=== PATIENT | female | born 1955 | race Caucasian/White ===

== ENCOUNTER → 2018-01-03 | Outpatient (CLI) | payer BC ==
--- NOTE | 2018-01-04 16:32 | BD ---
EXAMINATION TYPE: MG DEXA axial skeleton. DATE OF EXAM: 01/03/2018 COMPARISON: NONE CLINICAL HISTORY: Height: 63 Weight: 181.3 FRAX RISK QUESTIONS: Alcohol (3 or more units per day): no Family History (Parent hip fracture): no Glucocorticoids (More than 3mos): no (Ex: prednisone, prednisolone, methylprednisolone, dexamethasone, and hydrocortisone). History of Fracture in Adulthood: no Secondary Osteoporosis: 1. Type 1 Diabetes: no 2. Hyperthyroidism: no 3. Menopause before 45: no 4. Malnutrition: no 5. Chronic liver disease: no Rheumatoid Arthritis: no Current Tobacco Use: no RISK FACTORS HISTORY OF: Surgery to Spine/Hip(right/left)/Wrist (right/left): no Family History of Osteoporosis: no Active: yes Diet low in dairy products/other sources of calcium: yes Postmenopausal woman: around 52 years old Lost more than 2 inches in height since high school: no Frequent falls: no Poor Health: no Hyperparathyroidism: no Adrenal Insufficiency: no MEDICATIONS: atenolol Additional History: EXAM MEASUREMENTS: Bone mineral densitometry was performed using the [employer] System. Bone mineral density as measured about the Lumbar spine is: ----- L1-L4(G/cm2): 1.041 T Score Values are as follows: ----- L2: -1.3 ----- L3: -0.2 ----- L4: -1.4 ----- L1-L4: -1.2 Bone mineral density has:: baseline Bone mineral density about the R hip (g/cm2): 0.853 Bone mineral density about the L hip (g/cm2): 0.830 T Score values are as follows: -----R Neck: -1.3 -----L Neck: -1.5 -----R Total: -0.6 -----L Total: -0.7 Bone mineral density has: baseline Bone mineral density about the L Wrist (g/cm2): 0.606 T Score values are as follows: -----Dist. R+U: -0.3 -----Prox. R+U: -1.3 -----Radius total: -1.1 Bone mineral density has: baseline IMPRESSION: Osteopenia (T Score between -2.5 and -1 as noted by T score values There is slightly increased risk of fracture and the patient may be considered for treatment. Re-Screen 2-5 years. NOTE: T-SCORE=SD OF THE YOUNG ADULT MEAN.
--- NOTE | 2018-01-08 07:58 | BD ---
EXAMINATION TYPE: MG DEXA appendicular skeleton. DATE OF EXAM: 01/03/2018 COMPARISON: NONE CLINICAL HISTORY: Height: 63 Weight: 181.3 FRAX RISK QUESTIONS: Alcohol (3 or more units per day): No Family History (Parent hip fracture): No Glucocorticoids (More than 3mos): No (Ex: prednisone, prednisolone, methylprednisolone, dexamethasone, and hydrocortisone). History of Fracture in Adulthood: No Secondary Osteoporosis: 1. Type 1 Diabetes: No 2. Hyperthyroidism: No 3. Menopause before 45: No 4. Malnutrition: No 5. Chronic liver disease: No Rheumatoid Arthritis: No Current Tobacco Use: No RISK FACTORS HISTORY OF: Surgery to Spine/Hip(right/left)/Wrist (right/left): No Family History (Parent Hip Fracture): No Active: Yes Diet low in dairy products/other sources of calcium: Yes Postmenopausal woman: Around 52 years old Frequent falls: No Poor Health: No Hyperparathyroidism: No Adrenal Insufficiency: No MEDICATIONS: Atenolol Additional History: EXAM MEASUREMENTS: Bone mineral densitometry was performed using the [email or web address] System. Bone mineral density as measured about the Lumbar spine is: ----- L1-L4(G/cm2): 1.041 T Score Values are as follows: ----- L2: -1.3 ----- L3: -0.2 ----- L4: -1.4 ----- L1-L4: -1.2 Bone mineral density has: Baseline Bone mineral density about the R hip (g/cm2): 0.853 Bone mineral density about the L hip (g/cm2): 0.830 T Score values are as follows: -----R Neck: -1.3 -----L Neck: -1.5 -----R Total: -0.6 -----L Total: -0.7 Bone mineral density has: Baseline Bone mineral density about the L Wrist (g/cm2): 0.606 T Score values are as follows: -----Dist. R+U: -0.3 -----Prox. R+U: -1.3 -----Radius total: -0.6 Bone mineral density has: Baseline IMPRESSION: Osteopenia (T Score between -2.5 and -1 as noted by T score values at level of left wrist correlates with findings found in both hips and low back. There is slightly increased risk of fracture and the p atient may be considered for treatment. Re-Screen 2-5 years. NOTE: T-SCORE=SD OF THE YOUNG ADULT MEAN.
== END | disposition home or self-care (01) ==
LOC: RADBDWWP 15:53
PROVIDERS: ATTEND Internal Medicine
DX: M85.80 Other specified disorders of bone density and structure, unspecified site (principal); E83.52 Hypercalcemia
CPT/HCPCS: 77080; 77081

== ENCOUNTER → 2018-01-12 | Outpatient (CLI) | payer BC ==
[2018-01-12 10:22] LABS: Ionized Calcium 5.6 mg/dL (4.5-5.3)
[2018-01-12 10:25] LABS: ALT 32 U/L (9-52); AST 21 U/L (14-36); Albumin 4.2 g/dL (3.5-5.0); Alkaline Phosphatase 91 U/L (38-126); Blood Urea Nitrogen 13 mg/dL (7-17); Calcium 10.6 mg/dL (8.4-10.2); Carbon Dioxide 27 mmol/L (22-30); Chloride 103 mmol/L (98-107); Glucose 96 mg/dL (74-99); Phosphorus 3.1 mg/dL (2.5-4.5); Potassium 4.9 mmol/L (3.5-5.1); Total Bilirubin 0.3 mg/dL (0.2-1.3); Total Protein 6.9 g/dL (6.3-8.2)
[2018-01-12 10:31] LABS: Anion Gap 11 mmol/L; Sodium 141 mmol/L (137-145)
[2018-01-12 13:43] LABS: Calcium 24 Hour,Urine 182.6 mg/24 hr
[2018-01-12 13:44] LABS: Creatinine 24 Hour,Urine 1126.4 mg/24hr (800.0-1800.0)
== END | disposition home or self-care (01) ==
LOC: LABWHC1 09:20
PROVIDERS: ATTEND Internal Medicine
DX: E83.52 Hypercalcemia (principal)
CPT/HCPCS: 36415; 80053; 81050; 82306; 82330; 82340; 82570; 83970; 84100

== ENCOUNTER → 2018-05-16 | Outpatient (CLI) | payer BC ==
[2018-05-16 11:53] LABS: Ionized Calcium 5.5 mg/dL (4.5-5.3)
[2018-05-16 12:47] LABS: ALT 39 U/L (9-52); AST 28 U/L (14-36); Albumin 4.5 g/dL (3.5-5.0); Alkaline Phosphatase 98 U/L (38-126); Anion Gap 12 mmol/L; Blood Urea Nitrogen 17 mg/dL (7-17); Calcium 10.4 mg/dL (8.4-10.2); Carbon Dioxide 25 mmol/L (22-30); Chloride 102 mmol/L (98-107); Glucose 93 mg/dL (74-99); Potassium 4.6 mmol/L (3.5-5.1); Sodium 139 mmol/L (137-145); Total Bilirubin 0.4 mg/dL (0.2-1.3); Total Protein 6.9 g/dL (6.3-8.2)
[2018-05-16 16:17] LABS: Vitamin D 25 Hydroxy 38.1 ng/mL (30.0-100.0)
[2018-05-16 17:25] LABS: Parathyroid Hormone Intact 100.8 pg/mL (14.0-72.0)
== END | disposition home or self-care (01) ==
LOC: LABWHC1 11:07
PROVIDERS: ATTEND Internal Medicine
DX: E83.52 Hypercalcemia (principal)
CPT/HCPCS: 36415; 80053; 82306; 82330; 83970

== ENCOUNTER → 2018-11-22 | Outpatient (CLI) | payer BC ==
[2018-11-22 12:05] LABS: Ionized Calcium 5.5 mg/dL (4.5-5.3)
[2018-11-22 12:06] LABS: Basophils # (A) 0.1 k/uL (0-0.2); Basophils % (A) 1 %; Eosinophils # (A) 0.2 k/uL (0-0.7); Eosinophils % (A) 3 %; HCT 42.9 % (34.0-46.0); HGB 13.6 gm/dL (11.4-16.0); Lymphocytes # (A) 2.2 k/uL (1.0-4.8); Lymphocytes % (A) 32 %; MCH 29.7 pg (25.0-35.0); MCHC 31.7 g/dL (31.0-37.0); Mean Platelet Volume 8.3; Monocytes # (A) 0.4 k/uL (0-1.0); Monocytes % (A) 5 %; Neutrophils # (A) 3.9 k/uL (1.3-7.7); Neutrophils % (A) 57 %; Platelet Count 253 k/uL (150-450); RBC 4.56 m/uL (3.80-5.40); RDW 14.1 % (11.5-15.5); WBC 6.8 k/uL (3.8-10.6)
[2018-11-22 15:33] LABS: Parathyroid Hormone Intact 173.1 pg/mL (14.0-72.0)
[2018-11-22 15:35] LABS: Albumin 4.5 g/dL (3.80-4.90); Albumin/Globulin Ratio 2.65 (1.20-2.10); Anion Gap 8.5 mmol/L (4.00-12.00); Calcium 9.7 mg/dL (8.7-10.3); Carbon Dioxide 26.5 mmol/L (21.6-31.8); Globulin 1.7 g/dL (1.6-3.3); LDL Cholesterol,Calculated 100.4 mg/dL (0.0-131.0); Phosphorus 2.9 mg/dL (2.4-5.1); Potassium 4.7 mmol/L (3.5-5.5); Total Bilirubin 0.4 mg/dL (0.3-1.2); Total Protein 6.2 g/dL (6.2-8.2); VLDL Calculation 28.6 mg/dL (5.00-40.00)
== END | disposition home or self-care (01) ==
LOC: LABWHC1 10:52
PROVIDERS: ATTEND Internal Medicine
DX: E21.3 Hyperparathyroidism, unspecified (principal); E55.9 Vitamin D deficiency, unspecified; E04.1 Nontoxic single thyroid nodule; Z13.1 Encounter for screening for diabetes mellitus; Z13.0 Encounter for screening for diseases of the blood and blood-forming organs and certain disorders involving the immune mechanism; Z13.220 Encounter for screening for lipoid disorders
CPT/HCPCS: 36415; 80053; 80061; 82306; 82330; 83970; 84100; 84443; 85025

== ENCOUNTER → 2018-12-09 | Outpatient (CLI) | payer BC ==
--- NOTE | 2018-12-14 09:23 | MM ---
Reason for exam: screening (asymptomatic). Last mammogram was performed 2 years and 2 months ago. History: Patient is postmenopausal. Benign excisional biopsy of the right breast, 2001. Benign excisional biopsy of the right breast, 1994. MG Screening Mammo w CAD Bilateral CC and MLO view(s) were taken. Prior study comparison: September 28, 2016, bilateral MG screening mammo w CAD. August 12, 2015, bilateral MG screening mammo w CAD. There are scattered fibroglandular densities. No suspicious abnormality. No significant changes when compared with prior studies. ASSESSMENT: Negative, BI-RAD 1 RECOMMENDATION: Routine screening mammogram of both breasts in 1 year.
== END | disposition home or self-care (01) ==
LOC: RADMAMWWP 14:38
PROVIDERS: ATTEND Family Medicine
DX: Z12.31 Encounter for screening mammogram for malignant neoplasm of breast (principal)
CPT/HCPCS: 77067

== ENCOUNTER → 2020-01-05 | Outpatient (CLI) | payer MEDICARE ==
--- NOTE | 2020-01-06 10:35 | MM ---
Reason for exam: screening (asymptomatic). Last mammogram was performed 1 year and 1 month ago. History: Patient is postmenopausal. Benign excisional biopsy of the right breast, 2001. Benign excisional biopsy of the right breast, 1994. Physical Findings: A clinical breast exam by your physician is recommended on an annual basis and results should be correlated with mammographic findings. MG 3D Screening Mammo W/Cad Bilateral CC and MLO view(s) were taken. Prior study comparison: December 09, 2018, bilateral MG screening mammo w CAD. September 28, 2016, bilateral MG screening mammo w CAD. There are scattered fibroglandular densities. There is chronic nodularity in the right breast. There is no dominant lesion. No significant changes when compared with prior studies. ASSESSMENT: Benign, BI-RAD 2 RECOMMENDATION: Routine screening mammogram of both breasts in 1 year.
== END | disposition home or self-care (01) ==
LOC: RADMAMWWP 16:06
PROVIDERS: ATTEND Family Medicine
DX: Z12.31 Encounter for screening mammogram for malignant neoplasm of breast (principal)
CPT/HCPCS: 77063; 77067

== ENCOUNTER 2020-10-12 16:11 | Emergency (ER) | payer MEDICARE ==
[2020-10-12] MEDS ORDERED: HYDROmorphone 0.5 MG/0.5 ML SYRINGE IVP STA (16:44)
[2020-10-12] MEDS ORDERED: SODIUM CHLORIDE 0.9% 1,000 ML IV STA (16:44)
--- NOTE | 2020-10-12 17:16 | ED ---
General Adult HPI - General Chief complaint: Abdominal Pain Stated complaint: abdominal pain Time Seen by Provider: 10/12/20 16:29 Source: patient, RN notes reviewed Mode of arrival: ambulatory Limitations: no limitations - History of Present Illness Initial comments: patient is a pleasant 65-year-old female presenting to the emergency Department with complaints of abdominal discomfort. Onset of symptoms was over a week ago. Discomfort has worsened the past couple of days. Patient does feel somewhat constipated. Patient did have some nausea vomiting however that has resolved. Patient also had some diarrhea that is also resolved. Patient did see her doctor close to week ago and was started on antibiotics however symptoms have worsened. No fever. Patient does have history of diverticular disease. - Related Data Home Medications Medication Instructions Recorded Confirmed Ciprofloxacin HCl [Cipro] 250 mg PO BID 10/12/20 10/12/20 Ciprofloxacin HCl [Cipro] 500 mg PO BID 10/12/20 10/12/20 Ergocalciferol (Vitamin D2) 50,000 unit PO WE 10/12/20 10/12/20 [Drisdol] atenoloL [Atenolol] 25 mg PO HS 10/12/20 10/12/20 metroNIDAZOLE [Flagyl] 500 mg PO TID 10/12/20 10/12/20 Allergies Allergy/AdvReac Type Severity Reaction Status Date / Time No Known Allergies Allergy Verified 10/12/20 17:43 Review of Systems ROS Statement: Those systems with pertinent positive or pertinent negative responses have been documented in the HPI. ROS Other: All systems not noted in ROS Statement are negative. Constitutional: Denies: fever, chills Eyes: Denies: eye pain ENT: Denies: ear pain Respiratory: Denies: cough Cardiovascular: Denies: chest pain Endocrine: Denies: fatigue Gastrointestinal: Reports: as per HPI, abdominal pain Genitourinary: Denies: dysuria Musculoskeletal: Denies: back pain Skin: Denies: rash Past Medical History Past Medical History: Hypertension Additional Past Medical History / Comment(s): diverticuli History of Any Multi-Drug Resistant Organisms: None Reported Additional Past Surgical History / Comment(s): parathyroidectomy Past Psychological History: No Psychological Hx Reported Smoking Status: Never smoker Past Alcohol Use History: None Reported Past Drug Use History: None Reported General Exam Limitations: no limitations General appearance: alert, in no apparent distress Head exam: Present: normocephalic Eye exam: Present: normal appearance Neck exam: Present: normal inspection Respiratory exam: Present: normal lung sounds bilaterally Cardiovascular Exam: Present: regular rate, normal rhythm Expanded Peripheral pulses: 2+: Posterior Tibialis (R), Posterior Tibialis (L) GI/Abdominal exam: Present: soft, tenderness (moderate tenderness left lower q uadrant), normal bowel sounds. Absent: distended, guarding, rebound, rigid, pulsatile mass Extremities exam: Present: normal inspection. Absent: pedal edema, calf tenderness Back exam: Absent: CVA tenderness (R), CVA tenderness (L) Neurological exam: Present: alert Psychiatric exam: Present: normal affect, normal mood Skin exam: Present: normal color Course Vital Signs 10/12/20 10/12/20 16:22 18:49 Temperature 97 F L Pulse Rate 114 H 92 Respiratory 18 16 Rate Blood Pressure 161/75 144/73 O2 Sat by Pulse 96 97 Oximetry Medical Decision Making - Medical Decision Making atient reevaluated and resting comfortably in bed. Patient feeling much better following medications. Patient updated on results and need for follow-up. Patient is currently on antibiotics and therefore we will wait on urine culture before considering prescription for questionable urinary tract infection. Patient is advised [id number] Metamucil or stool softeners. - Lab Data Result diagrams: 10/12/20 17:10/12/20 17: Lab Results 10/12/20 10/12/20 10/12/20 Range/Units 17:01 17:01 17:01 WBC 9.6 (3.8-10.6) k/uL RBC 4.72 (3.80-5.40) m/uL Hgb 14.7 (11.4-16.0) gm/dL Hct 44.0 (34.0-46.0) % MCV 93.2 (80.0-100.0) fL MCH 31.2 (25.0-35.0) pg MCHC 33.5 (31.0-37.0) g/dL RDW 13.7 (11.5-15.5) % Plt Count 260 (150-450) k/uL MPV 8.3 Neutrophils % 71 % Lymphocytes % 21 % Monocytes % 4 % Eosinophils % 1 % Basophils % 1 % Neutrophils # 6.8 (1.3-7.7) k/uL Lymphocytes # 2.0 (1.0-4.8) k/uL Monocytes # 0.4 (0-1.0) k/uL Eosinophils # 0.1 (0-0.7) k/uL Basophils # 0.1 (0-0.2) k/uL PT 10.3 (9.0-12.0) sec INR 1.0 (<1.2) APTT 23.0 (22.0-30.0) sec Sodium 135 L (137-145) mmol/L Potassium 4.1 (3.5-5.1) mmol/L Chloride 105 (98-107) mmol/L Carbon Dioxide 24 (22-30) mmol/L Anion Gap 6 mmol/L BUN 12 (7-17) mg/dL Creatinine 0.69 (0.52-1.04) mg/dL Est GFR (CKD-EPI)AfAm >90 (>60 ml/min/1.73 sqM) Est GFR (CKD-EPI)NonAf >90 (>60 ml/min/1.73 sqM) Glucose 110 H (74-99) mg/dL Calcium 9.5 (8.4-10.2) mg/dL Total Bilirubin 0.4 (0.2-1.3) mg/dL AST 34 (14-36) U/L ALT 30 (4-34) U/L Alkaline Phosphatase 85 (38-126) U/L Total Protein 6.7 (6.3-8.2) g/dL Albumin 4.2 (3.5-5.0) g/dL Amylase 45 (30-110) U/L Lipase 89 (23-300) U/L Urine Color Urine Appearance (Clear) Urine pH (5.0-8.0) Ur Specific Wayne (1.001-1.035) Urine Protein (Negative) Urine Glucose (UA) (Negative) Urine Ketones (Negative) Urine Blood (Negative) Urine Nitrite (Negative) Urine Bilirubin (Negative) Urine Urobilinogen (<2.0) mg/dL Ur Leukocyte Esterase (Negative) Urine RBC (0-5) /hpf Urine WBC (0-5) /hpf Ur Squamous Epith Cells (0-4) /hpf Amorphous Sediment (None) /hpf Urine Bacteria (None) /hpf 10/12/20 Range/Units 18:49 WBC (3.8-10.6) k/uL RBC (3.80-5.40) m/uL Hgb (11.4-16.0) gm/dL Hct (34.0-46.0) % MCV (80.0-100.0) fL MCH (25.0-35.0) pg MCHC (31.0-37.0) g/dL RDW (11.5-15.5) % Plt Count (150-450) k/uL MPV Neutrophils % % Lymphocytes % % Monocytes % % Eosinophils % % Basophils % % Neutrophils # (1.3-7.7) k/uL Lymphocytes # (1.0-4.8) k/uL Monocytes # (0-1.0) k/uL Eosinophils # (0-0.7) k/uL Basophils # (0-0.2) k/uL PT (9.0-12.0) sec INR (<1.2) APTT (22.0-30.0) sec Sodium (137-145) mmol/L Potassium (3.5-5.1) mmol/L Chloride (98-107) mmol/L Carbon Dioxide (22-30) mmol/L Anion Gap mmol/L BUN (7-17) mg/dL Creatinine (0.52-1.04) mg/dL Est GFR (CKD-EPI)AfAm (>60 ml/min/1.73 sqM) Est GFR (CKD-EPI)NonAf (>60 ml/min/1.73 sqM) Glucose (74-99) mg/dL Calcium (8.4-10.2) mg/dL Total Bilirubin (0.2-1.3) mg/dL AST (14-36) U/L ALT (4-34) U/L Alkaline Phosphatase (38-126) U/L Total Protein (6.3-8.2) g/dL Albumin (3.5-5.0) g/dL Amylase (30-110) U/L Lipase (23-300) U/L Urine Color Light Yellow Urine Appearance Clear (Clear) Urine pH 6.5 (5.0-8.0) Ur Specific Wayne 1.030 (1.001-1.035) Urine Protein Negative (Negative) Urine Glucose (UA) Negative (Negative) Urine Ketones Negative (Negative) Urine Blood Negative (Negative) Urine Nitrite Negative (Negative) Urine Bilirubin Negative (Negative) Urine Urobilinogen <2.0 (<2.0) mg/dL Ur Leukocyte Esterase Large H (Negative) Urine RBC 1 (0-5) /hpf Urine WBC 25 H (0-5) /hpf Ur Squamous Epith Cells 9 H (0-4) /hpf Amorphous Sediment Rare H (None) /hpf Urine Bacteria Occasional H (None) /hpf - Radiology Data Radiology results: report reviewed (Computed tomography scan abdomen pelvis does not reveal acute abnormality. No diverticulitis. Mildly distended bladder) Disposition Clinical Impression: Abdominal pain Disposition: HOME SELF-CARE Condition: Stable Instructions (If sedation given, give patient instructions): Abdominal Pain (ED), High Fiber Diet (ED) Additional Instructions: Please follow-up with primary care physician in the next day or 2 for recheck. have primary care physician check urine culture results. Return for fevers, increased pain, worsening or changing symptoms or other concerns. [id number] Colace or Metamucil or similar. Is patient prescribed a controlled substance at d/c from ED?: No Referrals: Vivek Hayden MD [Primary Care Provider] - 1-2 days Time of Disposition: 19:32
[2020-10-12 17:18] LABS: Basophils # (A) 0.1 k/uL (0-0.2); Basophils % (A) 1 %; Eosinophils # (A) 0.1 k/uL (0-0.7); Eosinophils % (A) 1 %; HGB 14.7 gm/dL (11.4-16.0); Lymphocytes % (A) 21 %; MCH 31.2 pg (25.0-35.0); MCHC 33.5 g/dL (31.0-37.0); MCV 93.2 fL (80.0-100.0); Mean Platelet Volume 8.3; Monocytes # (A) 0.4 k/uL (0-1.0); Monocytes % (A) 4 %; Neutrophils # (A) 6.8 k/uL (1.3-7.7); Neutrophils % (A) 71 %; Platelet Count 260 k/uL (150-450); RBC 4.72 m/uL (3.80-5.40); RDW 13.7 % (11.5-15.5); WBC 9.6 k/uL (3.8-10.6)
[2020-10-12 17:28] LABS: ALT 30 U/L (4-34); AST 34 U/L (14-36); African American GFR (CKD) >90 (>60 ml/min/1.73 sqM); Albumin 4.2 g/dL (3.5-5.0); Alkaline Phosphatase 85 U/L (38-126); Amylase 45 U/L (30-110); Anion Gap 6 mmol/L; Blood Urea Nitrogen 12 mg/dL (7-17); Calcium 9.5 mg/dL (8.4-10.2); Carbon Dioxide 24 mmol/L (22-30); Chloride 105 mmol/L (98-107); Glucose 110 mg/dL (74-99); Lipase 89 U/L (23-300); Non-African American GFR(CKD) >90 (>60 ml/min/1.73 sqM); Potassium 4.1 mmol/L (3.5-5.1); Sodium 135 mmol/L (137-145); Total Bilirubin 0.4 mg/dL (0.2-1.3); Total Protein 6.7 g/dL (6.3-8.2)
[2020-10-12 17:29] LABS: Prothrombin Time 10.3 sec (9.0-12.0)
--- NOTE | 2020-10-12 18:48 | CT ---
EXAMINATION TYPE: CT abdomen pelvis w con DATE OF EXAM: 10/12/2020 COMPARISON: None available. HISTORY: Abdominal pain. constipation CT DLP: 985.8 mGycm Automated exposure control for dose reduction was used. TECHNIQUE: Helical acquisition of images was performed from the lung bases through the pelvis. CONTRAST: Performed without Oral Contrast and with IV Contrast, patient injected with 100 mL of Isovue 300. FINDINGS: LUNG BASES: No significant abnormality is appreciated. LIVER/GB: No significant abnormality is appreciated. PANCREAS: No significant abnormality is seen. SPLEEN: No significant abnormality is seen. ADRENALS: No significant abnormality is seen. KIDNEYS: No significant abnormality is seen. A 1.3 cm benign-appearing left renal cyst, most consiste nt with benign. FREE AIR: No free air is visualized. RETROPERITONEAL ADENOPATHY: None visualized REPRODUCTIVE ORGANS: No significant abnormality is seen URINARY BLADDER: Mildly distended. PELVIC ADENOPATHY: None visualized. OSSEOUS STRUCTURES: No significant abnormality is seen. BOWEL: No acute abnormality is seen. Outpouching of the gastric fundus, suggestive of diverticulum. Colonic diverticulosis without acute diverticulitis. Normal appendix. OTHER: None. IMPRESSION: NO ACUTE ABNORMALITY. INCIDENTAL OUTPOUCHING OF THE GASTRIC FUNDUS, SUGGESTIVE OF DIVERTICULUM. COLONIC DIVERTICULOSIS. MILDLY DISTENDED URINARY BLADDER.
[2020-10-12 19:22] LABS: Amorphous Sediment,Urine Rare /hpf; Appearance,Urine Clear (Clear); Bacteria,Urine Occasional /hpf; Bilirubin,Urine Negative (Negative); Blood,Urine Negative (Negative); Color,Urine Light Yellow; Glucose,Urine (UA) Negative (Negative); Ketones,Urine Negative (Negative); Leukocyte Esterase,Urine Large (Negative); Nitrite,Urine Negative (Negative); PH, Urine 6.5 (5.0-8.0); Protein,Urine Negative (Negative); RBC,Urine 1 /hpf (0-5); Squamous Epithelial Cell,Urine 9 /hpf (0-4); Urobilinogen,Urine <2.0 mg/dL (<2.0); WBC,Urine 25 /hpf (0-5)
[2020-10-12 19:44] VITALS: BP 152/64; PULSE 88; RESP 18; TEMP 97.2
== END 2020-10-12 19:42 | disposition home or self-care (01) ==
LOC: EC 16:11
DX: R10.9 Unspecified abdominal pain (principal); R11.2 Nausea with vomiting, unspecified; R19.7 Diarrhea, unspecified; I10 Essential (primary) hypertension; Z79.899 Other long term (current) drug therapy; Z87.19 Personal history of other diseases of the digestive system
CPT/HCPCS: 96374; 99284; 96361 ×2; 51798; 36415; 80053; 82150; 83690; 85025; 85610; 85730; 81001; 87086; 74177; J1170; Q9967

== ENCOUNTER → 2021-01-20 | Outpatient (CLI) | payer MEDICARE ==
--- NOTE | 2021-01-21 13:57 | MM ---
Reason for exam: screening (asymptomatic). Last mammogram was performed 1 year ago. History: Patient is postmenopausal. Benign excisional biopsy of the right breast, 2001. Benign excisional biopsy of the right breast, 1994. Physical Findings: A clinical breast exam by your physician is recommended on an annual basis and results should be correlated with mammographic findings. MG 3D Screening Mammo W/Cad Bilateral CC and MLO view(s) were taken. Prior study comparison: January 05, 2020, bilateral MG 3d screening mammo w/cad. December 09, 2018, bilateral MG screening mammo w CAD. There are scattered fibroglandular densities. There is no discrete abnormality. No significant changes when compared with prior studies. ASSESSMENT: Negative, BI-RAD 1 RECOMMENDATION: Routine screening mammogram of both breasts in 1 year.
== END | disposition home or self-care (01) ==
LOC: RADMAMWWP 09:45
PROVIDERS: ATTEND Family Medicine
DX: Z12.31 Encounter for screening mammogram for malignant neoplasm of breast (principal)
CPT/HCPCS: 77063; 77067

== ENCOUNTER 2021-02-09 12:37 | Inpatient (IN) | payer MEDICARE ==
[2021-02-09] MEDS ORDERED: ACETAMINOPHEN TAB 325 MG TAB PO PRN (13:06)
[2021-02-09] MEDS ORDERED: NALOXONE 0.4 MG/ML 1 ML VIAL IV PRN (13:06)
--- NOTE | 2021-02-09 13:06 | ED ---
General Adult HPI - General Chief complaint: Shortness of Breath Stated complaint: COVID+ Time Seen by Provider: 02/09/21 12:43 Source: patient, EMS, RN notes reviewed, old records reviewed Mode of arrival: EMS Limitations: no limitations - History of Present Illness Initial comments: This a 65 year old female presents emergency Department via EMS from [facility] chief complaint of covid. Patient states that she's been sick for last 2 weeks started declining. Patient states that she's had the point where she cannot get up and move states that she so winded. Patient found to be hypoxic at 86 upon arrival to the emergency department. Patient improved after oxygenation. Patient states that she's not been eating and drinking well. Patient has no current chest pain or chest tightness at this time patient had mild GI symptoms. Patient does have a history of hypertension. - Related Data Home Medications Medication Instructions Recorded Confirmed Ciprofloxacin HCl [Cipro] 250 mg PO BID 10/12/20 10/12/20 Ciprofloxacin HCl [Cipro] 500 mg PO BID 10/12/20 10/12/20 Ergocalciferol (Vitamin D2) 50,000 unit PO WE 10/12/20 10/12/20 [Drisdol] atenoloL [Atenolol] 25 mg PO HS 10/12/20 10/12/20 metroNIDAZOLE [Flagyl] 500 mg PO TID 10/12/20 10/12/20 Allergies Allergy/AdvReac Type Severity Reaction Status Date / Time No Known Allergies Allergy Verified 10/12/20 17:43 Review of Systems ROS Statement: Those systems with pertinent positive or pertinent negative responses have been documented in the HPI. ROS Other: All systems not noted in ROS Statement are negative. Past Medical History Past Medical History: Hypertension Additional Past Medical History / Comment(s): diverticuli History of Any Multi-Drug Resistant Organisms: None Reported Additional Past Surgical History / Comment(s): parathyroidectomy, lumpectomy Past Psychological History: No Psychological Hx Reported Smoking Status: Never smoker Past Alcohol Use History: None Reported Past Drug Use History: None Reported General Exam Limitations: no limitations General appearance: alert, in no apparent distress Head exam: Present: atraumatic, normocephalic, normal inspection Eye exam: Present: normal appearance, PERRL, EOMI. Absent: scleral icterus, conjunctival injection, periorbital swelling ENT exam: Present: normal exam, normal oropharynx, mucous membranes moist, TM's normal bilaterally Neck exam: Present: normal inspection, full ROM. Absent: tenderness, meningismus, lymphadenopathy Respiratory exam: Present: normal lung sounds bilaterally. Absent: respiratory distress, wheezes, rales, rhonchi, stridor Cardiovascular Exam: Present: regular rate, normal rhythm, normal heart sounds. Absent: systolic murmur, diastolic murmur, rubs, gallop, clicks GI/Abdominal exam: Present: soft, normal bowel sounds. Absent: distended, tenderness, guarding, rebound, rigid Course Vital Signs 02/09/21 12:47 Temperature 99.2 F Pulse Rate 70 Respiratory 18 Rate Blood Pressure 135/74 O2 Sat by Pulse 96 Oximetry Medical Decision Making - Medical Decision Making Case discussed with Dr. Dotson accepts admission with consult to infectious disease and pulmonology. Disposition Clinical Impression: COVID-19, Hypoxia, Weakness Disposition: ADMITTED IP TO THIS [facility] Condition: Fair Referrals: Vivek Hayden MD [Primary Care Provider] - 1-2 days
[2021-02-09] MEDS ORDERED: SODIUM CHLORIDE 0.9% 1,000 ML IV SCH (13:15)
[2021-02-09] MEDS ORDERED: dexAMETHasone 2 MG TAB PO SCH (13:45)
[2021-02-09 14:06] LABS: D-Dimer 1.22 mg/L FEU (<0.60); INR 1.1 (<1.2); Partial Thromboplastin Time 22.4 sec (22.0-30.0); Prothrombin Time 11.4 sec (9.0-12.0)
[2021-02-09] MEDS: ENOXAPARIN 80 MG/0.8 ML SYRINGE SQ SCH (14:14)
[2021-02-09] MEDS: ASCORBIC ACID 500 MG TAB PO SCH (14:14)
[2021-02-09] MEDS: ZINC SULFATE 220 MG CAP PO SCH (14:14)
[2021-02-09] MEDS: CHOLECALCIFEROL 25 MCG (1000 IU) TABLET PO SCH (14:14)
[2021-02-09] MEDS: FAMOTIDINE 20 MG TAB PO SCH (14:14)
[2021-02-09 14:19] LABS: C Reactive Protein 184.6 mg/L (<10.0)
[2021-02-09 16:46] LABS: Glucose,Whole Blood 124 mg/dL (75-99)
--- NOTE | 2021-02-09 19:06 | P.HPIM ---
History of Present Illness H&P Date: 02/09/21 Chief Complaint: Short of breath History of presenting complaint: This is a pleasant 65-year-old patient who follows with Dr. Hayden. Patient's symptoms started about 3 weeks ago. Has been progressively getting worse. She started having body aches and had fever and chills developed a cough became short of breath. Headaches. Bodyaches became worse. Some diarrhea. Decrease appetite rundown. Symptoms continued to get worse started beginning more and more weak. Patient had COVID from which she actually recovered finally patient's daughter at the patient coming to the hospital. Patient has tested positive for COVID. Review of systems: GEN.: Tired fever EYES: None HEENT: Headaches NECK: None RESPIRATORY: As above CARDIOVASCULAR: None GASTROINTESTINAL: Some loose stools] GENITOURINARY: None MUSCULOSKELETAL: Muscle pains LYMPHATICS: None HEMATOLOGICAL: None PSYCHIATRY: None NEUROLOGICAL: None Past medical history to include: Hypertension, diverticulosis Social history: . Does not smoke or drink alcohol. Family history: Reviewed, noncontributory to presentation Physical examination: VITAL SIGNS: 99.2, 70, 18, 135/74, 96% on 4 L. 86% on room air upon presentation to ER GENERAL: BMI 29.2, laying in bed, tired appearing. EYES: Pupils equal. Conjunctiva normal. HEENT: External appearance of nose and ears normal, oral cavity grossly normal. NECK: JVD not raised; masses not palpable. HEART: First and second heart sounds are normal; no edema. LUNGS: Respiratory rate increased, decreased breath sound some crackles. ABDOMEN: Soft, nontender, liver spleen not palpable, no masses palpable. PSYCH: [Alert and oriented x3; mood and affect slightly anxious l. NEUROLOGICAL: Cranial nerves grossly intact; no facial asymmetry, power and sensation grossly intact. LYMPHATICS: No lymph nodes palpable in the axilla and neck INVESTIGATIONS, reviewed in the clinical context: D-dimer 1.2 to, CRP 184.6 Chest x-ray reported bilateral infiltrates Patient labs were drawn [facility]. Assessment and plan: -Acute COVID 19 bilateral pneumonia. Symptoms started 3 weeks ago. Patient has been placed on vitamin C vitamin D Lovenox Pepcid Decadron -Essential hypertension, continue with Tenormin -Chronic diverticulosis. Asymptomatic -Acute hypoxic respiratory failure from COVID 19 pneumonia. Oxygen supplementation Care was discussed with the patient. Questions answered. Patient was encouraged to sit up and use incentive spirometric. Given the complexity and severity of patient's condition expect the patient to be in the hospital at least for 2 overnights Past Medical History Past Medical History: Hypertension Additional Past Medical History / Comment(s): diverticuli History of Any Multi-Drug Resistant Organisms: None Reported Additional Past Surgical History / Comment(s): parathyroidectomy, lumpectomy Past Psychological History: No Psychological Hx Reported Smoking Status: Never smoker Past Alcohol Use History: None Reported Past Drug Use History: None Reported Medications and Allergies Home Medications Medication Instructions Recorded Confirmed Type Ergocalciferol (Vitamin D2) 50,000 unit PO WE 10/12/20 02/09/21 History [Drisdol] atenoloL [Atenolol] 25 mg PO HS 10/12/20 02/09/21 History Acetaminophen Tab [Tylenol] 1,000 mg PO Q8HR PRN 02/09/21 02/09/21 History Allergies Allergy/AdvReac Type Severity Reaction Status Date / Time No Known Allergies Allergy Verified 02/09/21 13:23 Physical Exam Vitals: Vital Signs Temp Pulse Resp BP Pulse Ox 02/09/21 15:36 75 18 125/55 98 02/09/21 12:47 99.2 F 70 18 135/74 96 Intake and Output 02/09/21 02/09/21 02/09/21 06:59 14:59 22:59 Other: Weight 77.111 kg Results Labs: Abnormal Lab Results - Last 24 Hours (Table) 02/09/21 02/09/21 02/09/21 Range/Units 13:30 13:30 16:45 D-Dimer 1.22 H (<0.60) mg/L FEU POC Glucose (mg/dL) 124 H (75-99) mg/dL Lactate Dehydrogenase 1143 H (313-618) U/L C-Reactive Protein 184.6 H (<10.0) mg/L
[2021-02-09] MEDS: atenoloL 25 MG TAB PO SCH (21:35)
[2021-02-10] MEDS: LACTATED RINGERS 1,000 ML IV SCH ×5 (00:09→20:30)
[2021-02-10] MEDS: FAMOTIDINE 20 MG TAB PO SCH ×3 (00:09→20:29)
[2021-02-10] MEDS: methylPREDNISolone SOD SUCCI 125 MG/2 ML VIAL IV SCH ×2 (00:19→05:41)
[2021-02-10] MEDS: ENOXAPARIN 80 MG/0.8 ML SYRINGE SQ SCH (05:41)
[2021-02-10 06:13] LABS: Basophils % (A) 1 %; Eosinophils % (A) 0 %; HCT 44.8 % (34.0-46.0); Lymphocytes # (A) 0.5 k/uL (1.0-4.8); Lymphocytes % (A) 13 %; MCHC 33.4 g/dL (31.0-37.0); Mean Platelet Volume 8.6; Monocytes # (A) 0.2 k/uL (0-1.0); Monocytes % (A) 5 %; Neutrophils # (A) 3.4 k/uL (1.3-7.7); Neutrophils % (A) 78 %; Platelet Count 360 k/uL (150-450); RBC 4.98 m/uL (3.80-5.40); RDW 13.6 % (11.5-15.5); WBC 4.3 k/uL (3.8-10.6)
[2021-02-10 06:36] LABS: ALT 77 U/L (4-34); AST 58 U/L (14-36); African American GFR (CKD) >90 (>60 ml/min/1.73 sqM); Albumin 3.3 g/dL (3.5-5.0); Albumin/Globulin Ratio 1.3; Alkaline Phosphatase 103 U/L (38-126); Anion Gap 8 mmol/L; Blood Urea Nitrogen 20 mg/dL (7-17); Calcium 9.4 mg/dL (8.4-10.2); Carbon Dioxide 27 mmol/L (22-30); Chloride 100 mmol/L (98-107); Globulin 2.6 g/dL; Glucose 186 mg/dL (74-99); LDH 878 U/L (313-618); Non-African American GFR(CKD) >90 (>60 ml/min/1.73 sqM); Potassium 4.1 mmol/L (3.5-5.1); Sodium 135 mmol/L (137-145); Total Bilirubin 0.6 mg/dL (0.2-1.3); Total Protein 5.9 g/dL (6.3-8.2)
[2021-02-10 07:21] LABS: C Reactive Protein 148.3 mg/L (<10.0)
[2021-02-10 07:40] LABS: Ferritin 1247.2 ng/mL (10.0-291.0)
[2021-02-10] MEDS: ASCORBIC ACID 500 MG TAB PO SCH (08:19)
[2021-02-10] MEDS: CHOLECALCIFEROL 25 MCG (1000 IU) TABLET PO SCH (08:20)
--- NOTE | 2021-02-10 08:20 | CONS ---
CONSULTATION DATE OF SERVICE: 02/09/2021 REASON FOR CONSULTATION: COVID-19 infection. HISTORY OF PRESENT ILLNESS: The patient is a 65-year-old female presenting to [facility] ER for evaluation of increasing shortness of breath and cough. Her symptoms had been going on for about 3 weeks before presentation to the hospital. The patient's symptoms have been mostly shortness of breath on minimal exertion. She also has a cough which is moderate in intensity with occasional sputum rash and no hemoptysis. Denies having any chest pain. Some nausea but no vomiting. Decreased appetite, some abdominal pain, and did have some diarrhea. The patient was evaluated at the outside facility and has been diagnosed with COVID-19. Subsequently has been sent to this facility for further management. On presentation hospital the patient did have a low-grade fever of 99.2 degrees Fahrenheit. The patient was hypoxic requiring supplemental oxygen, currently 92% on 4 L nasal cannula. The patient did have a D-dimer 1.22 and LDH of 1143. CRP of . The patient was admitted to the hospital, currently being treated with decadron, Lovenox, vitamin C, and zinc sulfate. Infectious Disease was consulted for further management of antibiotic therapy. REVIEW OF SYSTEMS: Positive points have been mentioned in HPI. Rest of the systems are negative. PAST MEDICAL HISTORY: Hypertension and diverticulosis. PAST SURGICAL HISTORY: Parathyroidectomy. SOCIAL HISTORY: No history of smoking, drinking or drug use. FAMILY HISTORY: No pertinent findings noticed. ALLERGIES: No known drug allergies. MEDICATIONS: The patient is currently on dexamethasone, zinc, Narcan, lactated ringers, Pepcid, Lanoxin, vitamin D3, Tenormin, vitamin C, and Tylenol. PHYSICAL EXAMINATION: VITAL SIGNS: Blood pressure 130/71 with a pulse of 84, temperature 98.2, she is 92% on 4 L nasal cannula. GENERAL DESCRIPTION: Patient is an elderly female lying in bed in no distress. No tachypnea or accessory muscles of respiration use. HEENT: Examination shows no pallor or scleral icterus. Oral mucous membrane is dry. NECK: Trachea central, no thyromegaly. LUNGS: Unlabored breathing, decreased breath sounds at the bases. No wheeze. HEART: S1-S2, regular rate and rhythm. ABDOMEN: Soft, no tenderness. EXTREMITIES: No edema of the feet. SKIN: No rash or mass palpable. NEUROLOGICAL: Patient is awake, alert, oriented times three. Mood and affect normal. LABS: D-dimer is 1.22. CRP is . LDH is 1143. DIAGNOSTIC IMPRESSION: Patient admitted to the hospital with acute COVID-19 infection in this patient whose symptoms have been going on for about 3 weeks and seems to have shown progressive worsening of her symptoms. Patient is currently out of therapeutic window for remdesivir and Lio and clinical diagnosis of fever and secondary bacterial pneumonia. PLAN: . SOLOMON / IJN: [id number] /
--- NOTE | 2021-02-10 08:21 | XR ---
EXAMINATION TYPE: XR chest 1V portable DATE OF EXAM: 02/10/2021 COMPARISON: 02/09/2021 HISTORY: Shortness of TECHNIQUE: Single frontal view of the chest is obtained. FINDINGS: There are diffuse bilateral interstitial infiltrates stable in appearance. No pneumothorax . Heart size stable. No sizable effusion. Arthropathy of the shoulders. IMPRESSION: Diffuse bilateral areas of infiltrate stable
[2021-02-10] MEDS: ZINC SULFATE 220 MG CAP PO SCH (08:23)
[2021-02-10] MEDS ORDERED: ALBUTEROL HFA INHALER INHALATION PRN (10:58)
--- NOTE | 2021-02-10 10:58 | P.CNPUL ---
History of Present Illness Consult date: 02/10/21 Requesting physician: Boom Dotson Reason for consult: dyspnea, cough, hypoxemia, pneumonia, abnormal CXR/CT Chief complaint: Shortness of breath, cough, fever, muscle aches. History of present illness: 65-year-old female, who presents to the emergency department, the EMS, from [facility], with complaints of 3 weeks worth of shortness of breath, cough, fever, chills, muscle aches, and generally just not feeling well. When she presented to the emergency department, initially, her saturations on room air were 86%. The patient was trying to stay at home, but got so bad, that she decided to be evaluated. The patient initially went to [facility], and was transferred down here. Her appetite has been poor. She's not been drinking a lot of fluids. She just feels miserable. She denies any chest pain or pressure. She also denies any nausea, vomiting, diarrhea, or abdominal pain. Currently, she is on 4 L nasal cannula, and is getting lactated Ringer's at 125 mL an hour. Her medical history is positive for hypertension. White count is 4.3, hemoglobin 15, hematocrit 44.8, platelet count 360,000. D-dimer is 1.22. PT, INR, and PTT are all normal. Sodium 135, potassium 4.1, chlorides 100, CO2 27, anion gap 8, BUN 20, creatinine 0.51. AST and ALT are 58 and 77 r espectively. LDH 878, C-reactive protein 148. Chest x-ray shows diffuse bilateral infiltrates. Review of Systems REVIEW OF SYSTEMS: CONSTITUTIONAL: Fever and chills, muscle aches, weakness and fatigue. NEUROLOGIC: [ Negative.] HEENT: [ Negative.] CARDIAC: [Negative.] PULMONARY: Shortness of breath, cough, no phlegm production, pain in chest when she coughs. GI: [Negative.] : [Negative.] RHEUMATOLOGIC: [ Negative.] IMMUNOLOGIC: [ Negative.] ENDOCRINE: [Negative. ] DERMATOLOGIC: [Negative.] Past Medical History Past Medical History: Hypertension Additional Past Medical History / Comment(s): diverticuli History of Any Multi-Drug Resistant Organisms: None Reported Additional Past Surgical History / Comment(s): parathyroidectomy, lumpectomy Past Psychological History: No Psychological Hx Reported Smoking Status: Never smoker Past Alcohol Use History: None Reported Past Drug Use History: None Reported Medications and Allergies Home Medications Medication Instructions Recorded Confirmed Type Ergocalciferol (Vitamin D2) 50,000 unit PO WE 10/12/20 02/09/21 History [Drisdol] atenoloL [Atenolol] 25 mg PO HS 10/12/20 02/09/21 History Acetaminophen Tab [Tylenol] 1,000 mg PO Q8HR PRN 02/09/21 02/09/21 History Allergies Allergy/AdvReac Type Severity Reaction Status Date / Time No Known Allergies Allergy Verified 02/09/21 13:23 Physical Exam Osteopathic Statement: *. No significant issues noted on an osteopathic structural exam other than those noted in the History and Physical/Consult. Vitals: Vital Signs Temp Pulse Resp BP Pulse Ox 02/10/21 07:34 97.9 F 60 16 136/79 94 L 02/10/21 05:38 97.9 F 63 20 139/64 95 02/10/21 04:00 66 18 115/54 91 L 02/10/21 00:00 97.7 F 66 18 130/51 952 H 02/09/21 19:53 84 18 130/71 92 L 02/09/21 15:36 75 18 125/55 98 02/09/21 12:47 99.2 F 70 18 135/74 96 No acute distress, oriented 3. Nasal O2 at 4 L. No conversational dyspnea for audible wheezing. No use of accessory muscles. HEENT examination is grossly unremarkable. Mucous membranes are moist. No oral lesions. Neck supple. Full range of motion. No adenopathy thyromegaly or neck vein distention. Cardiovascular examination reveals regular rhythm rate. S1-S2 normal. No S3 or S4. No discernible murmur noted. Heart rate is 60 bpm. Lungs reveal bilateral crackles and rhonchi. Breath sounds equal. No wheezes. Abdomen soft bowel sounds are heard. No masses or tenderness. Extremities are intact. No cyanosis clubbing or edema. Skin is without rash or lesion. Neurologic examination is brief but nonfocal. Results - Laboratory Findings CBC and BMP: 02/10/21 05:43 02/10/21 05:43 PT/INR, D-dimer PT 11.4 sec (9.0-12.0) 02/09/21 13:30 INR 1.1 (<1.2) 02/09/21 13:30 D-Dimer 1.12 mg/L FEU (<0.60) H 02/10/21 05:43 Abnormal lab findings: Abnormal Labs 02/09/21 02/09/21 02/09/21 13:30 13:30 13:30 Lymphocytes # D-Dimer 1.22 H Sodium BUN Creatinine Glucose POC Glucose (mg/dL) Ferritin 1247.2 H AST ALT Lactate Dehydrogenase 1143 H C-Reactive Protein 184.6 H Total Protein Albumin Procalcitonin 0.26 H 02/09/21 02/10/21 02/10/21 16:45 05:43 05:43 Lymphocytes # 0.5 L D-Dimer 1.12 H Sodium BUN Creatinine Glucose POC Glucose (mg/dL) 124 H Ferritin AST ALT Lactate Dehydrogenase C-Reactive Protein Total Protein Albumin Procalcitonin 02/10/21 05:43 Lymphocytes # D-Dimer Sodium 135 L BUN 20 H Creatinine 0.51 L Glucose 186 H POC Glucose (mg/dL) Ferritin AST 58 H ALT 77 H Lactate Dehydrogenase 878 H C-Reactive Protein 148.3 H Total Protein 5.9 L Albumin 3.3 L Procalcitonin - Diagnostic Findings Chest x-ray: image reviewed Assessment and Plan Assessment: Acute hypoxemic respiratory failure, secondary to COVID 19 pneumonia/pneumonitis. Elevated inflammatory markers, and lymphopenia, secondary to above. History of hypertension. History of diverticular disease. Lifelong nonsmoker. Plan: Plan dated 02/10/2021. The patient is really not a candidate for anything much at this time. The patient will get vitamin C, vitamin D3, and zinc. In addition, we'll provide her with an albuterol inhaler. She is not a candidate for REM, TOCI, or convalescent plasma. She is on Lovenox. The corticosteroids will be DC'd in favor of Decadron. Additional recommendations and suggestions are forthcoming. We will continue to follow. Prognosis is guarded. Time with Patient: Greater than 30
[2021-02-10] MEDS: dexAMETHasone 2 MG TAB PO SCH (11:57)
[2021-02-10] MEDS: atenoloL 25 MG TAB PO SCH (20:29)
--- NOTE | 2021-02-10 23:10 | PN ---
PROGRESS NOTE DATE OF SERVICE: 02/10/2021 REASON FOR FOLLOWUP: COVID-19 pneumonia. INTERVAL HISTORY: The patient is currently afebrile. The patient is breathing comfortably. The patient denies having any chest pain, shortness of breath. Occasional cough. No abdominal pain and no diarrhea. PHYSICAL EXAMINATION: Blood pressure 158/79, pulse of 62, temperature 97.8. She is 95% on 4 L nasal cannula. General description is an elderly female up in the chair in no distress. RESPIRATORY SYSTEM: Unlabored breathing with decreased intensity of breath sounds. No wheeze. HEART: S1, S2. Regular rate and rhythm. ABDOMEN: Soft. No tenderness. LABS: Hemoglobin is 15, white count of 4.3, BUN of 20, creatinine 0.51. LDH is down to 878. CRP is down. Procalcitonin 0.24. DIAGNOSTIC IMPRESSION AND PLAN: Patient with acute COVID-19 pneumonia in this patient currently out of the therapeutic window for the remdesivir. Seems to have shown clinical response to dexamethasone, Lovenox, zinc, ascorbic acid; to continue along with respiratory support and monitor clinical course closely. MMODL / IJN: [id number] /
--- NOTE | 2021-02-10 23:34 | P.PN ---
Progress Note - Text Progress Note Date: 02/10/21 Chief Complaint: Short of breath History of presenting complaint: This is a pleasant 65-year-old patient who follows with Dr. Hayden. Patient's symptoms started about 3 weeks ago. Has been progressively getting worse. She started having body aches and had fever and chills developed a cough became short of breath. Headaches. Bodyaches became worse. Some diarrhea. Decrease appetite rundown. Symptoms continued to get worse started beginning more and more weak. Patient had COVID from which she actually recovered finally patient's daughter at the patient coming to the hospital. Patient has tested positive for COVID. Admitted with bilateral COVID 19 pneumonia. Acute hypoxic respiratory failure. Started with dexamethasone, Lovenox Today-some shortness of breath. On nasal cannula 4 L. Oral intake good Review of systems: Was done for constitutional, cardiovascular, GI, pulmonary. relevant finding as above Active Medications Acetaminophen (Acetaminophen Tab 325 Mg Tab) 650 mg PO Q6HR PRN PRN Reason: Mild Pain or Fever > 100.5 Albuterol Sulfate (Albuterol Hfa Inhaler) 2 puff INHALATION RT-QID PRN PRN Reason: Shortness Of Breath Or Wheezing Ascorbic Acid (Ascorbic Acid 500 Mg Tab) 1,000 mg PO DAILY [facility] Last Admin: 02/10/21 08:19 Dose: 1,000 mg Documented by: Atenolol (Atenolol 25 Mg Tab) 25 mg PO HS [facility] Last Admin: 02/10/21 20:29 Dose: 25 mg Documented by: Cholecalciferol (Cholecalciferol 25 Mcg (1000 Iu) Tablet) 100 mcg PO DAILY [facility] Last Admin: 02/10/21 08:20 Dose: 100 mcg Documented by: Dexamethasone (Dexamethasone 2 Mg Tab) 6 mg PO DAILY [facility] Last Admin: 02/10/21 11:57 Dose: 6 mg Documented by: Enoxaparin Sodium (Enoxaparin 40 Mg/0.4 Ml Syringe) 40 mg SQ DAILY [facility] Famotidine (Famotidine 20 Mg Tab) 20 mg PO BID [facility] Last Admin: 02/10/21 20:29 Dose: 20 mg Documented by: Lactated Ringer's (Lactated Ringers) 1,000 mls @ 125 mls/hr IV .Q8H [facility] Last Admin: 02/10/21 20:30 Dose: 125 mls/hr Documented by: Naloxone HCl (Naloxone 0.4 Mg/Ml 1 Ml Vial) 0.2 mg IV Q2M PRN PRN Reason: Opioid Reversal Zinc Sulfate (Zinc Sulfate 220 Mg Cap) 220 mg PO DAILY [facility] Last Admin: 02/10/21 08:23 Dose: Not Given Documented by: Past medical history to include: Hypertension, diverticulosis Social history: . Does not smoke or drink alcohol. Family history: Reviewed, noncontributory to presentation Physical examination: VITAL SIGNS: 97.9, 72, 15, 143 with 32, 92% on 4 L d-dimer 1.12 CRP 148 pro- calcitonin 0.24 GENERAL: laying in bed, tired PSYCH: [Alert and oriented x3; mood and affect slightly anxious . NEUROLOGICAL: Cranial nerves grossly intact; no facial asymmetry, moving all 4 limbs Rest of the exam as per pulmonary and nursing INVESTIGATIONS, reviewed in the clinical context: February 10: WBC 4.3 hemoglobin 15 potassium 4.1 creatinine 0.51 D-dimer 1.2 to, CRP 184.6 Chest x-ray reported bilateral infiltrates Patient labs were drawn [facility]. Assessment and plan: -Acute COVID 19 bilateral pneumonia. Symptoms started 3 weeks ago. Patient has been placed on vitamin C vitamin D Lovenox Pepcid Decadron -Essential hypertension, continue with Tenormin -Chronic diverticulosis. Asymptomatic -Acute hypoxic respiratory failure from COVID 19 pneumonia. 4 L of nasal cannula -Nonspecific hepatitis. Order hepatic ultrasound Discussed with patient.
[2021-02-11] MEDS: ENOXAPARIN 40 MG/0.4 ML SYRINGE SQ SCH (10:03)
[2021-02-11] MEDS: dexAMETHasone 2 MG TAB PO SCH (10:03)
[2021-02-11] MEDS: CHOLECALCIFEROL 25 MCG (1000 IU) TABLET PO SCH (10:03)
[2021-02-11] MEDS: ASCORBIC ACID 500 MG TAB PO SCH (10:03)
[2021-02-11] MEDS: FAMOTIDINE 20 MG TAB PO SCH ×2 (10:04→21:08)
[2021-02-11] MEDS: ZINC SULFATE 220 MG CAP PO SCH (10:04)
--- NOTE | 2021-02-11 11:06 | US ---
EXAMINATION TYPE: US abdomen limited DATE OF EXAM: 02/11/2021 COMPARISON: CT CLINICAL HISTORY: Mildly elevated liver enzymes. EXAM MEASUREMENTS: Liver Length: 15.5 cm Gallbladder Wall: 0.3 cm CBD: 0.6 cm Right Kidney: 9.1 x 4.7 x 4.1 cm Pancreas: wnl Liver: wnl Gallbladder: No stones seen Evidence for sonographic Mar's sign: No CBD: wnl Right Kidney: No hydronephrosis or masses seen IMPRESSION: No gallstones. Common bile duct is at the upper limits of normal measuring 6 mm. Correlat e clinically.
[2021-02-11] MEDS: LACTATED RINGERS 1,000 ML IV SCH ×2 (11:28→22:08)
--- NOTE | 2021-02-11 17:23 | P.PN ---
Subjective Progress Note Date: 02/11/21 Principal diagnosis: Shortness of breath, cough, fever, muscle aches 65-year-old female, who presents to the emergency department, the EMS, from [facility], with complaints of 3 weeks worth of shortness of breath, cough, fever, chills, muscle aches, and generally just not feeling well. When she presented to the emergency department, initially, her saturations on room a ir were 86%. The patient was trying to stay at home, but got so bad, that she decided to be evaluated. The patient initially went to [facility], and was transferred down here. Her appetite has been poor. She's not been drinking a lot of fluids. She just feels miserable. She denies any chest pain or pressure. She also denies any nausea, vomiting, diarrhea, or abdominal pain. Currently, she is on 4 L nasal cannula, and is getting lactated Ringer's at 125 mL an hour. Her medical history is positive for hypertension. White count is 4.3, hemoglobin 15, hematocrit 44.8, platelet count 360,000. D-dimer is 1.22. PT, INR, and PTT are all normal. Sodium 135, potassium 4.1, chlorides 100, CO2 27, anion gap 8, BUN 20, creatinine 0.51. AST and ALT are 58 and 77 respectively. LDH 878, C-reactive protein 148. Chest x-ray shows diffuse bilateral infiltrates. On 02/11/2021 patient seen in follow-up on medical floor, she presented, she is currently on 3 L of oxygen, pulse oximetry 94%, lung sounds are clear, she reports improving appetite, she is working on incentive spirometer, she is receiving lactated Ringer's at a rate of 125 ML per hour, she's had no fever or chills, hemodynamically she's been stable. Nausea vomiting or diarrhea. Her laboratory markers are improving, LDH is down to 878, and CRP he is 148.3 on yesterday's labs, Procan SR level remained low at 0.24. She continues on multivitamins, oral Decadron and prophylactic Lovenox, Objective - Vital Signs Vital signs: Vital Signs Temp 97.8 F 02/11/21 14:00 Pulse 85 02/11/21 14:00 Resp 18 02/11/21 14:00 BP 113/66 02/11/21 14:00 Pulse Ox 92 L 02/11/21 14:00 Intake & Output 02/10/21 02/11/21 02/11/21 18:59 06:59 18:59 Intake Total 1250 1500 Balance 1250 1500 Weight 77.111 kg Intake: Intake, IV Titration 1250 1200 Amount Lactated Ringers 1,000 ml 1250 1200 @ 125 mls/hr IV .Q8H [facility] Rx#:[id number] Oral 300 Other: # Voids 3 - Exam GENERAL EXAM: Alert, very pleasant, 65-year-old white female on 4 L of oxygen and the pulse ox of 94% comfortable in no apparent distress. HEAD: Normocephalic/atraumatic. EYES: Normal reaction of pupils, equal size. Conjunctiva pink, sclera white. NOSE: Clear with pink turbinates. THROAT: No erythema or exudates. NECK: No masses, no JVD, no thyroid enlargement, no adenopathy. CHEST: No chest wall deformity. Symmetrical expansion. LUNGS: Equal air entry with no crackles, wheeze, rhonchi or dullness. CVS: Regular rate and rhythm, normal S1 and S2, no gallops, no murmurs, no rubs ABDOMEN: Soft, nontender. No hepatosplenomegaly, normal bowel sounds, no guarding or rigidity. EXTREMITIES: No clubbing, no edema, no cyanosis, 2+ pulses and upper and lower extremities. MUSCULOSKELETAL: Muscle strength and tone normal. SPINE: No scoliosis or deformity SKIN: No rashes CENTRAL NERVOUS SYSTEM: Alert and oriented -3. No focal deficits, tone is normal in all 4 extremities. PSYCHIATRIC: Alert and oriented -3. Appropriate affect. Intact judgment and insight. - Labs CBC & Chem 7: 02/10/21 05:43 02/10/21 05:43 Assessment and Plan Plan: Assessment: #1. Acute hypoxemic respiratory failure secondary to acute COVID 19 pneumonia, out of the window for Remdesivir #2. Elevated inflammatory markers and lymphopenia, improving #3. Hypertension #4. Diverticulosis #5. Lifetime nonsmoker Plan: Remains stable from pulmonary perspective, continue weaning FiO2 encourage deep breathing and coughing in incentive spirometry use, if remains stable with no worsening dyspnea or hypoxia she can be to considered for discharge home tomorrow in the next 24 hours, obtain home oxygen assessment, she can finish outpatient course of oral Decadron for a total of 10 days, and we'll see the patient in follow-up in the office in 2-3 weeks. I performed a history & physical examination of the patient and discussed their management with my nurse practitioner, Karyn Light. I reviewed the nurse practitioner's note and agree with the documented findings and plan of care. Lung sounds are positive for diminished breath sounds. The findings and the impression was discussed with the patient. I attest to the documentation by the nurse practitioner. Time with Patient: Less than 30
--- NOTE | 2021-02-11 19:19 | PN ---
PROGRESS NOTE DATE OF SERVICE: 02/11/2021 REASON FOR FOLLOWUP: COVID-19 infection. INTERVAL HISTORY: The patient is currently afebrile. The patient is feeling better. She is breathing more comfortably. Denies having any chest pain. Occasional cough. No sputum. No nausea, no vomiting, no abdominal pain or diarrhea. PHYSICAL EXAMINATION: Blood pressure 113/66, pulse of 85, temperature 97.8. She is 92% on room air. General description is an elderly female up in the chair in no distress. RESPIRATORY SYSTEM: Unlabored breathing with decreased intensity of breath sounds. No wheeze. HEART: S1, S2. Regular rate and rhythm. ABDOMEN: Soft. No tenderness. LABS: Hemoglobin is 15, white count of 4.3, BUN of 20, creatinine 0.51. DIAGNOSTIC IMPRESSION AND PLAN: Patient with acute COVID-19 infection in this patient who seems to have shown overall clinical response to current supportive treatment of dexamethasone, Lovenox and zinc, ascorbic acid; to continue along with respiratory support and monitor clinical course closely. MMODL / IJN: [id number] /
[2021-02-11] MEDS: atenoloL 25 MG TAB PO SCH (21:08)
--- NOTE | 2021-02-11 21:52 | P.PN ---
Progress Note - Text Progress Note Date: 02/11/21 Chief Complaint: Short of breath History of presenting complaint: This is a pleasant 65-year-old patient who follows with Dr. Hayden. Patient's symptoms started about 3 weeks ago. Has been progressively getting worse. She started having body aches and had fever and chills developed a cough became short of breath. Headaches. Bodyaches became worse. Some diarrhea. Decrease appetite rundown. Symptoms continued to get worse started beginning more and more weak. Patient had COVID from which she actually recovered finally patient's daughter at the patient coming to the hospital. Patient has tested positive for COVID. Admitted with bilateral COVID 19 pneumonia. Acute hypoxic respiratory failure. Started with dexamethasone, Lovenox Today-sitting up to chair. Feeling better today. Shortness of breath. Oral intake is fair. FiO2 down to 3 L. Review of systems: Was done for constitutional, cardiovascular, GI, pulmonary. relevant finding as above Active Medications Acetaminophen (Acetaminophen Tab 325 Mg Tab) 650 mg PO Q6HR PRN PRN Reason: Mild Pain or Fever > 100.5 Albuterol Sulfate (Albuterol Hfa Inhaler) 2 puff INHALATION RT-QID PRN PRN Reason: Shortness Of Breath Or Wheezing Ascorbic Acid (Ascorbic Acid 500 Mg Tab) 1,000 mg PO DAILY [facility] Last Admin: 02/11/21 10:03 Dose: 1,000 mg Documented by: Atenolol (Atenolol 25 Mg Tab) 25 mg PO HS [facility] Last Admin: 02/11/21 21:08 Dose: 25 mg Documented by: Cholecalciferol (Cholecalciferol 25 Mcg (1000 Iu) Tablet) 100 mcg PO DAILY [facility] Last Admin: 02/11/21 10:03 Dose: 100 mcg Documented by: Dexamethasone (Dexamethasone 2 Mg Tab) 6 mg PO DAILY [facility] Last Admin: 02/11/21 10:03 Dose: 6 mg Documented by: Enoxaparin Sodium (Enoxaparin 40 Mg/0.4 Ml Syringe) 40 mg SQ DAILY [facility] Last Admin: 02/11/21 10:03 Dose: 40 mg Documented by: Famotidine (Famotidine 20 Mg Tab) 20 mg PO BID [facility] Last Admin: 02/11/21 21:08 Dose: 20 mg Documented by: Lactated Ringer's (Lactated Ringers) 1,000 mls @ 125 mls/hr IV .Q8H [facility] Last Admin: 02/11/21 11:28 Dose: Not Given Documented by: Naloxone HCl (Naloxone 0.4 Mg/Ml 1 Ml Vial) 0.2 mg IV Q2M PRN PRN Reason: Opioid Reversal Zinc Sulfate (Zinc Sulfate 220 Mg Cap) 220 mg PO DAILY [facility] Last Admin: 02/11/21 10:04 Dose: 220 mg Documented by: Past medical history to include: Hypertension, diverticulosis Social history: . Does not smoke or drink alcohol. Family history: Reviewed, noncontributory to presentation Physical examination: VITAL SIGNS: 97.6, 85, 18, 113/66, 92% on 3 L by mouth GENERAL: Sitting up in a chair, comfortable PSYCH: [Alert and oriented x3; mood and affect slightly anxious . NEUROLOGICAL: Cranial nerves grossly intact; no facial asymmetry, moving all 4 limbs Rest of the exam as per pulmonary and nursing INVESTIGATIONS, reviewed in the clinical context: Liver ultrasound: Unremarkable February 10: WBC 4.3 hemoglobin 15 potassium 4.1 creatinine 0.51 d-dimer 1.12 CRP 148 pro-calcitonin 0.24 D-dimer 1.2 to, CRP 184.6 Chest x-ray reported bilateral infiltrates Patient labs were drawn [facility]. Assessment and plan: -Acute COVID 19 bilateral pneumonia. Symptoms started 3 weeks ago. Patient has been placed on vitamin C vitamin D Lovenox Pepcid Decadron -Essential hypertension, continue with Tenormin -Chronic diverticulosis. Asymptomatic -Acute hypoxic respiratory failure from COVID 19 pneumonia. 4 L of nasal cannula -Nonspecific hepatitis. Follow-up with GI as an outpatient Discussed with patient.
[2021-02-12] MEDS: LACTATED RINGERS 1,000 ML IV SCH (03:15)
[2021-02-12 05:55] VITALS: RESP 18
[2021-02-12 08:00] LABS: Basophils % (A) 0 %; Eosinophils % (A) 0 %; HCT 37.9 % (34.0-46.0); HGB 12.5 gm/dL (11.4-16.0); Lymphocytes # (A) 1.1 k/uL (1.0-4.8); Lymphocytes % (A) 20 %; MCH 29.3 pg (25.0-35.0); MCHC 32.9 g/dL (31.0-37.0); MCV 89.2 fL (80.0-100.0); Mean Platelet Volume 8.3; Monocytes # (A) 0.6 k/uL (0-1.0); Monocytes % (A) 11 %; Neutrophils # (A) 3.7 k/uL (1.3-7.7); Neutrophils % (A) 68 %; Platelet Count 353 k/uL (150-450); RBC 4.25 m/uL (3.80-5.40); RDW 13.5 % (11.5-15.5); WBC 5.5 k/uL (3.8-10.6)
[2021-02-12] MEDS: ENOXAPARIN 40 MG/0.4 ML SYRINGE SQ SCH (10:05)
[2021-02-12] MEDS: FAMOTIDINE 20 MG TAB PO SCH (10:05)
[2021-02-12] MEDS: ZINC SULFATE 220 MG CAP PO SCH (10:05)
[2021-02-12] MEDS: dexAMETHasone 2 MG TAB PO SCH (10:05)
[2021-02-12] MEDS: CHOLECALCIFEROL 25 MCG (1000 IU) TABLET PO SCH (10:05)
[2021-02-12] MEDS: ASCORBIC ACID 500 MG TAB PO SCH (10:05)
[2021-02-12 11:13] VITALS: BP 119/67; PULSE 59; TEMP 98
--- NOTE | 2021-02-12 15:55 | P.PN ---
Subjective Progress Note Date: 02/12/21 Principal diagnosis: CoVID 19 infection 65-year-old female, who presents to the emergency department, the EMS, from [facility], with complaints of 3 weeks worth of shortness of breath, cough, fever, chills, muscle aches, and generally just not feeling well. When she presented to the emergency department, initially, her saturations on room air were 86%. The patient was trying to stay at home, but got so bad, that she decided to be evaluated. The patient initially went to [facility], and was transferred down here. Her appetite has been poor. She's not been drinking a lot of fluids. She just feels miserable. She denies any chest pain or pressure. She also denies any nausea, vomiting, diarrhea, or abdominal pain. Currently, she is on 4 L nasal cannula, and is getting lactated Ringer's at 125 mL an hour. Her medical history is positive for hypertension. White count is 4.3, hemoglobin 15, hematocrit 44.8, platelet count 360,000. D-dimer is 1.22. PT, INR, and PTT are all normal. Sodium 135, potassium 4.1, chlorides 100, CO2 27, anion gap 8, BUN 20, creatinine 0.51. AST and ALT are 58 and 77 respectively. LDH 878, C-reactive protein 148. Chest x-ray shows diffuse bilateral infiltrates. On 02/11/2021 patient seen in follow-up on medical floor, she presented, she is currently on 3 L of oxygen, pulse oximetry 94%, lung sounds are clear, she reports improving appetite, she is working on incentive spirometer, she is receiving lactated Ringer's at a rate of 125 ML per hour, she's had no fever or chills, hemodynamically she's been stable. Nausea vomiting or diarrhea. Her laboratory markers are improving, LDH is down to 878, and CRP he is 148.3 on yesterday's labs, Procan SR level remained low at 0.24. She continues on multivitamins, oral Decadron and prophylactic Lovenox, The patient is seen today 02/12/2021 in follow-up on the regular medical floor. She is currently sitting up in a chair at the bedside. Awake and alert in no acute distress. She is feeling nearly back to her baseline. She is maintaining good O2 saturations in the 90s on 2 L/m per nasal cannula. Does desaturate to 87% and qualifies for home oxygen. She's been afebrile. Hemodynamically stable. White count 5.5. Hemoglobin 12.5. Lymphocytes 1.1. D-dimer 2.08. She continues on multivitamins, oral Decadron and prophylactic Lovenox. Objective - Vital Signs Vital signs: Vital Signs Temp 98 F 02/12/21 10:08 Pulse 59 L 02/12/21 10:08 Resp 18 02/12/21 10:08 BP 119/67 02/12/21 10:08 Pulse Ox 87 L 02/12/21 11:48 Intake & Output 02/11/21 02/12/21 02/12/21 18:59 06:59 18:59 Other: Voiding Method Toilet # Voids 2 2 - Exam GENERAL EXAM: Alert, very pleasant 65-year-old female patient, on 2 L/m per ashley al cannula, comfortable in no apparent distress. HEAD: Normocephalic. EYES: Normal reaction of pupils, equal size. NOSE: Clear with pink turbinates. THROAT: No erythema or exudates. NECK: No masses, no JVD. CHEST: No chest wall deformity. LUNGS: Equal air entry with few basilar crackles CVS: S1 and S2 normal with no audible murmur, regular rhythm. ABDOMEN: No hepatosplenomegaly, normal bowel sounds, no guarding or rigidity. SPINE: No scoliosis or deformity SKIN: No rashes CENTRAL NERVOUS SYSTEM: No focal deficits, tone is normal in all 4 extremities. EXTREMITIES: There is no peripheral edema. No clubbing, no cyanosis. Peripheral pulses are intact. - Labs CBC & Chem 7: 02/12/21 07:23 02/10/21 05:43 Labs: Abnormal Lab Results - Last 24 Hours (Table) 02/12/21 Range/Units 07:23 D-Dimer 2.08 H (<0.60) mg/L FEU Assessment and Plan Assessment: 1 Acute hypoxemic respiratory failure secondary to acute COVID 19 pneumonia, out of the window for Remdesivir 2 Elevated inflammatory markers and lymphopenia, improving 3 Hypertension 4 Diverticulosis 5 Lifetime nonsmoker Plan: The patient was seen and evaluated by Dr. Tapia Currently stable from the pulmonary standpoint Be discharged home today Evaluate for possible home oxygen I, the cosigning physician, performed a history & physical examination of the patient. Lungs sounds basilar crackles. Maintaining good O2 saturations in the 90s on 2 L/m per nasal cannula. I discussed the assessment and plan of care with my nurse practitioner, Kaylyn Bland. I attest to the above note as dictated by her.
--- NOTE | 2021-02-12 16:41 | PN ---
PROGRESS NOTE DATE OF SERVICE: 02/12/2021 REASON FOR FOLLOWUP: COVID-19 infection. INTERVAL HISTORY: The patient is currently afebrile. The patient is breathing comfortably. Currently waiting for home oxygen arrangement discharge. The patient denies having any chest pain, shortness of breath. Occasional cough. No abdominal pain or diarrhea. PHYSICAL EXAMINATION: VITAL SIGNS: Blood pressure 119/69 with a pulse of 59, temperature 98, she is 94% on 2 L nasal cannula. GENERAL DESCRIPTION: Patient is an elderly female up in the chair in no distress. LUNGS: Unlabored breathing, decreased intensity of breath sounds, no wheeze. HEART: S1-S2, regular rate and rhythm. ABDOMEN: Soft, no tenderness. LABS: Hemoglobin is 12.5, white count 5.5. D-dimer is 2.08, creatinine 0.51. IMPRESSION/PLAN: Patient with acute COVID-19 infection in this patient who has shown overall clinical improvement on current treatment protocol. The patient is getting discharged home on dexamethasone, zinc, ascorbic acid and Xarelto with close outpatient followup. Questions and concerns were answered. MMODL / IJN: [id number] /
--- NOTE | 2021-02-12 22:47 | P.DS ---
Providers Date of admission: 02/09/21 13:03 Expected date of discharge: 02/12/21 Attending physician: Boom Dotson Consults: 02/09/21 13:06 Consult Physician Urgent Consulting Provider: Kuldeep Tapia Consult Reason/Comments: covid Do you want consulting provider notified?: Yes Consult Physician Urgent Consulting Provider: Nora Deras Consult Reason/Comments: covid Do you want consulting provider notified?: Yes 02/12/21 11:58 Consult Physician Routine Consulting Provider: Amador Butcher Consult Reason/Comments: multiple 2 second pauses noted on tele Do you want consulting provider notified?: Yes Primary care physician: [facility] Course: Chief Complaint: Short of breath History of presenting complaint: This is a pleasant 65-year-old patient who follows with Dr. Hayden. Patient's symptoms started about 3 weeks ago. Has been progressively getting worse. She started having body aches and had fever and chills developed a cough became short of breath. Headaches. Bodyaches became worse. Some diarrhea. Decrease appetite rundown. Symptoms continued to get worse started beginning more and more weak. Patient had COVID from which she actually recovered finally patient's daughter at the patient coming to the hospital. Patient has tested positive for COVID. Admitted with bilateral COVID 19 pneumonia. Acute hypoxic respiratory failure. Started with dexamethasone, Lovenox Today-done much better. Oral intake good. With ambulation pulse ox was 87%. We'll discharge the patient home with 2 L. Oxygen being arranged. Patient had questionable sinus pause at night. Discussed with cardiology. DC atenolol. She'll follow-up with her cloth hauler Dr. Jeanne Erickson. Care was discussed with the patient. Questions answered. Discussion and discharge planning more than 35 minutes Consultation: Dr. Deras from ID Dr. Tapia from pulmonary Dr. ALIYA Matias from cardiology Past medical history to include: Hypertension, diverticulosis Social history: . Does not smoke or drink alcohol. Family history: Reviewed, noncontributory to presentation Physical examination: VITAL SIGNS: 98, 59, 18, 119/67, 94% on 2 L. 87% with ambulation GENERAL: Sitting up in a chair, comfortable PSYCH: [Alert and oriented x3; mood and affect slightly anxious . NEUROLOGICAL: Cranial nerves grossly intact; no facial asymmetry, moving all 4 limbs Rest of the exam as per pulmonary and nursing INVESTIGATIONS, reviewed in the clinical context: February 12: WBC 5.5 d-dimer 2.08 Liver ultrasound: Unremarkable February 10: WBC 4.3 hemoglobin 15 potassium 4.1 creatinine 0.51 d-dimer 1.12 CRP 148 pro-calcitonin 0.24 D-dimer 1.2 to, CRP 184.6 Chest x-ray reported bilateral infiltrates Patient labs were drawn [facility]. Assessment and plan: -Acute COVID 19 bilateral pneumonia. Symptoms started 3 weeks ago. Patient has been placed on vitamin C vitamin D Lovenox Pepcid Decadron. Did respond well -Essential hypertension, continue with Tenormin -Chronic diverticulosis. Asymptomatic -Acute hypoxic respiratory failure from COVID 19 pneumonia. 4 L of nasal cannula. Now down to 2 L. -Nonspecific hepatitis. Follow-up with GI as an outpatient to -possible sinus pause. Atenolol discontinued. We'll follow up with Dr. Jeanne Erickson Disposition: Home Patient Condition at Discharge: Fair Plan - Discharge Summary Discharge Rx Participant: Yes New Discharge Prescriptions: New Zinc Sulfate [Orazinc] 220 mg PO DAILY #30 cap Rivaroxaban [Xarelto] 10 mg PO DAILY #30 tab Famotidine [Pepcid] 20 mg PO BID #60 tab Ascorbic Acid [Vitamin C] 1,000 mg PO DAILY #60 tab dexAMETHasone [Dexamethasone] 6 mg PO DAILY #21 tablet Continue Ergocalciferol (Vitamin D2) [Drisdol (50,000 Iu)] 50,000 unit PO WE Acetaminophen Tab [Tylenol] 1,000 mg PO Q8HR PRN PRN Reason: Fever And/ Or Pain Discontinued atenoloL [Atenolol] 25 mg PO HS Discharge Medication List Ergocalciferol (Vitamin D2) [Drisdol (50,000 Iu)] 50,000 unit PO WE 10/12/20 [History] Acetaminophen Tab [Tylenol] 1,000 mg PO Q8HR PRN 02/09/21 [History] Ascorbic Acid [Vitamin C] 1,000 mg PO DAILY #60 tab 02/12/21 [Rx] Famotidine [Pepcid] 20 mg PO BID #60 tab 02/12/21 [Rx] Rivaroxaban [Xarelto] 10 mg PO DAILY #30 tab 02/12/21 [Rx] Zinc Sulfate [Orazinc] 220 mg PO DAILY #30 cap 02/12/21 [Rx] dexAMETHasone [Dexamethasone] 6 mg PO DAILY #21 tablet 02/12/21 [Rx] Follow up Appointment(s)/Referral(s): [facility] Tunde,Equipment [NON-STAFF] - As Needed (Supplier of home oxygen) Vivek Hayden MD [Primary Care Provider] - 1-2 days Kuldeep Tapia DO [Doctor of Osteopathic Medicine] - 1 Week (please call Sunday to schedule appointment ) Amador Butcher MD [STAFF PHYSICIAN] - 1 Week (please call Sunday to make appointment ) Patient Instructions/Handouts: Coronavirus Disease 2019 (COVID-19)
== END 2021-02-12 17:06 | disposition home or self-care (01) | DRG 177 ==
LOC: EC 12:37 → 4SSUR 13:03
PROVIDERS: ADMIT Hospitalist; ATTEND Hospitalist
DX: U07.1 COVID-19 (principal); J12.82 Pneumonia due to coronavirus disease 2019; J15.9 Unspecified bacterial pneumonia; J96.01 Acute respiratory failure with hypoxia; I10 Essential (primary) hypertension; D72.810 Lymphocytopenia; K57.90 Diverticulosis of intestine, part unspecified, without perforation or abscess without bleeding; K75.9 Inflammatory liver disease, unspecified; Z79.899 Other long term (current) drug therapy; I49.5 Sick sinus syndrome
CPT/HCPCS: 71045; 76705; 80053; 82728; 83615; 84145; 85025; 85379; 85610; 85730; 86140; 96361; 96372; 99285

== ENCOUNTER → 2022-01-23 | Outpatient (CLI) | payer MEDICARE ==
--- NOTE | 2022-01-25 08:36 | MM ---
Reason for exam: screening (asymptomatic). Last mammogram was performed 1 year ago. History: Patient is postmenopausal. Benign excisional biopsy of the right breast, 2001. Benign excisional biopsy of the right breast, 1994. Physical Findings: A clinical breast exam by your physician is recommended on an annual basis and results should be correlated with mammographic findings. MG 3D Screening Mammo W/Cad Bilateral CC and MLO view(s) were taken. Prior study comparison: January 20, 2021, bilateral MG 3d screening mammo w/cad. January 05, 2020, bilateral MG 3d screening mammo w/cad. There are scattered fibroglandular densities. There is chronic nodularity in the right breast. There is no dominant lesion. There is no discrete abnormality. No significant changes when compared with prior studies. ASSESSMENT: Benign, BI-RAD 2 RECOMMENDATION: Routine screening mammogram of both breasts in 1 year.
== END | disposition home or self-care (01) ==
LOC: RADMAMWWP 10:51
PROVIDERS: ATTEND Family Medicine
DX: Z12.31 Encounter for screening mammogram for malignant neoplasm of breast (principal); Z78.0 Asymptomatic menopausal state
CPT/HCPCS: 77063; 77067

== ENCOUNTER → 2023-02-27 | Outpatient (CLI) | payer MEDICARE ==
--- NOTE | 2023-02-28 10:46 | MM ---
Reason for Exam: Screening (asymptomatic). Last mammogram was performed 1 year(s) and 2 month(s) ago. Patient History: Menarche at age 11. First Full-Term at age 19. Postmenopausal. 2001, Benign Excisional Biopsy on the right side. 1994, Benign Excisional Biopsy on the right side. Risk Values: Mary 5 year model risk: 2.3%. NCI Lifetime model risk: 7.4%. Prior Study Comparison: 01/05/2020 Bilateral Screening Mammogram, [facility]. 01/20/2021 Bilateral Screening Mammogram, [facility]. 01/23/2022 Bilateral Screening Mammogram, [facility]. Tissue Density: There are scattered fibroglandular densities. Findings: Analyzed By CAD. Asymmetric diminished size of the right breast is redemonstrated with stable circumscribed 2 adjacent oval 8mm masses in the anterior central right breast. Occasional benign-appearing punctate ossification bilaterally is redemonstrated. There is no suspicious group of microcalcifications or new suspicious mass in either breast. Overall Assessment: Benign, BI-RAD 2 Management: Screening Mammogram of both breasts in 1 year. A clinical breast exam by your physician is recommended on an annual basis and results should be correlated with mammographic findings. Electronically signed and approved by: Tayo Shaw M.D.
== END | disposition home or self-care (01) ==
LOC: RADMAMWWP 10:42
PROVIDERS: ATTEND Family Medicine
DX: Z12.31 Encounter for screening mammogram for malignant neoplasm of breast (principal); Z78.0 Asymptomatic menopausal state
CPT/HCPCS: 77063; 77067

== ENCOUNTER 2023-03-16 11:43 | Inpatient (IN) | payer MEDICARE ==
--- NOTE | 2023-03-16 12:52 | ED ---
General Adult HPI - General Chief complaint: Abdominal Pain Stated complaint: Abd Pain Time Seen by Provider: 03/16/23 12:17 Source: patient Mode of arrival: ambulatory Limitations: no limitations - History of Present Illness Initial comments: Dictation was produced using [employer]Soon dictation software. please excuse any grammatical, word or spelling errors. Chief Complaint: 67-year-old female presents emergency with lower abdominal pain History of Present Illness: Patient is 59-year-old female she reports to the emergency department for left lower quadrant abdominal pain. She states that it seems a little colicky nature but it feels dull. States that it feels like whenever she tried to give in the past. Denies any fever. No nausea. Denies any history of diverticulitis. No vaginal discharge or vaginal bleeding. Denies any fever or constitutional symptoms. Denies any flank pain. Does not really to the groin. No blood in her urine The ROS documented in this emergency department record has been reviewed and co nfirmed by me. Those systems with pertinent positive or negative responses have been documented in the HPI. All other systems are other negative and/or noncontributory. - Related Data Home Medications Medication Instructions Recorded Confirmed Ergocalciferol (Vitamin D2) 1,250 mcg PO SUTH 10/12/20 03/16/23 [Drisdol (50,000 Iu)] Metoprolol Succinate (ER) [Toprol 100 mg PO DAILY 03/16/23 03/16/23 Xl] Multivitamins, Thera [Multivitamin 1 tab PO DAILY 03/16/23 03/16/23 (formulary)] hydroCHLOROthiazide [Hydrodiuril] 25 mg PO DAILY PRN 03/16/23 03/16/23 Allergies Allergy/AdvReac Type Severity Reaction Status Date / Time No Known Allergies Allergy Verified 03/16/23 15:12 Review of Systems ROS Statement: Those systems with pertinent positive or pertinent negative responses have been documented in the HPI. ROS Other: All systems not noted in ROS Statement are negative. Past Medical History Past Medical History: Hypertension, Thyroid Disorder Additional Past Medical History / Comment(s): diverticuli, COVID x2 History of Any Multi-Drug Resistant Organisms: None Reported Additional Past Surgical History / Comment(s): parathyroidectomy, lumpectomy Past Anesthesia/Blood Transfusion Reactions: No Reported Reaction Past Psychological History: No Psychological Hx Reported Smoking Status: Never smoker Past Alcohol Use History: None Reported Past Drug Use History: None Reported - Past Family History Father Family Medical History: Cancer Additional Family Medical History / Comment(s): at around 80 prostate cancer Mother Additional Family Medical History / Comment(s): blood out at home when she was 80 something General Exam - General Exam Comments Initial Comments: PHYSICAL EXAM: General Impression: Alert and oriented x3, not in acute distress HEENT: Normocephalic atraumatic, extra-ocular movements intact, pupils equal and reactive to light bilaterally, mucous membranes moist. Cardiovascular: Heart regular rate and rhythm Chest: Able to complete full sentences, no retractions, no tachypnea Abdomen: abdomen soft, mild palpatory left lower quadrant tenderness, non- distended, no organomegaly Musculoskeletal: Pulses present and equal in all extremities, no peripheral edema Motor: no focal deficits noted Neurological: CN II-XII grossly intact, no focal motor or sensory deficits noted Skin: Intact with no visualized rashes Psych: Normal affect and mood Limitations: no limitations Course Vital Signs 03/16/23 12:02 Temperature 98.2 F Pulse Rate 98 Respiratory 20 Rate Blood Pressure 156/75 O2 Sat by Pulse 95 Oximetry Medical Decision Making - Medical Decision Making Was pt. sent in by a medical professional or institution (GALINA Berger, TROLLEY WORKER, urgent care, hospital, or skilled nursing...) When possible be specific @ -No Did you speak to anyone other than the patient for history (EMS, parent, family, police, friend...)? What history was obtained from this source @ -No Did you review nursing and triage notes (agree or disagree)? Why? @ -I reviewed and agree with nursing and triage notes Were old charts reviewed (outside hosp., previous admission, EMS record, old EKG, old radiological studies, urgent care reports/EKG's, skilled nursing records)? Report findings @ -No old charts were reviewed Differential Diagnosis (chest pain, altered mental status, abdominal pain women, abdominal pain men, vaginal bleeding, musculoskeletal, weakness, fever, dyspnea, syncope, headache, dizziness, GI bleed, back pain, seizure, CVA, palpatations, mental health)? @ -Differential Abdominal Pain Women: Appendicitis, Cholecystitis, diverticulosis, ischemic bowel, pancreatitis, hepatitis, UTI, gastroenteritis, AAA, incarcerated hernia, bowel obstruction, constipation, inflammatory bowel, hepatitis, peptic ulcer disease, splenic infarction, perforated viscus, vulvitis, ovarian torsion, PID, kidney stone, placenta abruption, this is not meant to be an all-inclusive list EKG interpreted by me (3pts min.). @ -None done X-rays interpreted by me (1pt min.). @ -None done CT interpreted by me (1pt min.). @ -Complicated diverticulitis with tiny abscess U/S interpreted by me (1pt. min.). @ -None done What testing was considered but not performed or refused? (CT, X-rays, U/S, labs)? Why? @ -None What meds were considered but not given or refused? Why? @ -None Did you discuss the management of the patient with other professionals (professionals i.e. , PA, TROLLEY WORKER, lab, RT, psych nurse, social media assistant, board mill supervisor, teacher, regulatory compliance officer, case assistant)? Give summary @ -Case discussed with general surgeon for admission Was smoking cessation discussed for >3mins.? @ -No Was critical care preformed (if so, how long)? @ -No Were there social determinants of health that impacted care today? How? (Homelessness, low income, unemployed, alcoholism, drug addiction, transportation, low edu. Level, literacy, decrease access to med. care, prison, rehab)? @ -No Was there de-escalation of care discussed even if they declined (Discuss DNR or withdrawal of care, Hospice)? DNR status @ -No What co-morbidities impacted this encounter? (DM, HTN, Smoking, COPD, CAD, Cancer, CVA, ARF, Chemo, Hep., AIDS, mental health diagnosis, sleep apnea, morbid obesity)? @ -None Was patient admitted / discharged? Hospital course, mention meds given and route, prescriptions, significant lab abnormalities, going to OR and other pertinent info. @ -67-year-old female presents emergency department for abdominal pain. CT shows that patient has a diverticulitis. Diverticulitis, complicated by abscess. Patient given IV antibiotics. Will be admitted. Undiagnosed new problem with uncertain prognosis? @ -No Drug Therapy requiring intensive monitoring for toxicity (Heparin, Nitro, Insulin, Cardizem)? @ -No Were any procedures done? @ -No Diagnosis/symptom? Acute, or Chronic, or Acute on Chronic? Uncomplicated (without systemic symptoms) or Complicated (systemic symptoms)? @ -1. Complicated acute diverticulitis Side effects of treatment? @ -No Exacerbation, Progression, or Severe Exacerbation? @ -No Poses a threat to life or bodily function? How? (Chest pain, USA, LA, pneumonia, PE, COPD, DKA, ARF, appy, cholecystitis, CVA, Diverticulitis, Homicidal, Suicidal, threat to staff... and all critical care pts) @ -yes - Lab Data Result diagrams: 03/16/23 12:58 03/16/23 12:58 Lab Results 03/16/23 03/16/23 03/16/23 Range/Units 12:58 12:58 12:58 WBC 12.4 H (3.8-10.6) k/uL RBC 4.72 (3.80-5.40) m/uL Hgb 14.3 (11.4-16.0) gm/dL Hct 43.1 (34.0-46.0) % MCV 91.3 (80.0-100.0) fL MCH 30.4 (25.0-35.0) pg MCHC 33.3 (31.0-37.0) g/dL RDW 13.4 (11.5-15.5) % Plt Count 326 (150-450) k/uL MPV 8.9 Neutrophils % 75 % Lymphocytes % 17 % Monocytes % 6 % Eosinophils % 1 % Basophils % 0 % Neutrophils # 9.3 H (1.3-7.7) k/uL Lymphocytes # 2.1 (1.0-4.8) k/uL Monocytes # 0.7 (0-1.0) k/uL Eosinophils # 0.1 (0-0.7) k/uL Basophils # 0.1 (0-0.2) k/uL Sodium 135 L (137-145) mmol/L Potassium 3.6 (3.5-5.1) mmol/L Chloride 98 (98-107) mmol/L Carbon Dioxide 28 (22-30) mmol/L Anion Gap 9 mmol/L BUN 13 (7-17) mg/dL Creatinine 0.58 (0.52-1.04) mg/dL Est GFR (CKD-EPI)AfAm >90 (>60 ml/min/1.73 sqM) Est GFR (CKD-EPI)NonAf >90 (>60 ml/min/1.73 sqM) Glucose 114 H (74-99) mg/dL Calcium 9.6 (8.4-10.2) mg/dL Magnesium 2.0 (1.6-2.3) mg/dL Total Bilirubin 0.6 (0.2-1.3) mg/dL AST 36 (14-36) U/L ALT 31 (4-34) U/L Alkaline Phosphatase 103 (38-126) U/L Total Protein 6.9 (6.3-8.2) g/dL Albumin 4.2 (3.5-5.0) g/dL Lipase 43 (23-300) U/L Urine Color Yellow Urine Appearance Cloudy H (Clear) Urine pH 7.0 (5.0-8.0) Ur Specific [place] 1.019 (1.001-1.035) Urine Protein Trace H (Negative) Urine Glucose (UA) Negative (Negative) Urine Ketones Negative (Negative) Urine Blood Negative (Negative) Urine Nitrite Negative (Negative) Urine Bilirubin Negative (Negative) Urine Urobilinogen <2.0 (<2.0) mg/dL Ur Leukocyte Esterase Large H (Negative) Urine RBC 3 (0-5) /hpf Urine WBC 13 H (0-5) /hpf Ur Squamous Epith Cells 14 H (0-4) /hpf Urine Bacteria Rare H (None) /hpf Urine Mucus Rare H (None) /hpf Disposition Clinical Impression: Diverticulitis of large intestine with complication Disposition: ADMITTED IP TO THIS [facility] Condition: Fair Referrals: Vivek Hayden MD [Primary Care Provider] - 1-2 days Decision Time: 14:53
[2023-03-16 13:30] LABS: Appearance,Urine Cloudy (Clear); Bacteria,Urine Rare /hpf; Bilirubin,Urine Negative (Negative); Blood,Urine Negative (Negative); Color,Urine Yellow; Glucose,Urine (UA) Negative (Negative); Ketones,Urine Negative (Negative); Leukocyte Esterase,Urine Large (Negative); Mucus,Urine Rare /hpf; Nitrite,Urine Negative (Negative); Protein,Urine Trace (Negative); RBC,Urine 3 /hpf (0-5); Specific Gravity,Urine 1.019 (1.001-1.035); Squamous Epithelial Cell,Urine 14 /hpf (0-4); Urobilinogen,Urine <2.0 mg/dL (<2.0); WBC,Urine 13 /hpf (0-5)
[2023-03-16 13:41] LABS: Basophils # (A) 0.1 k/uL (0-0.2); Basophils % (A) 0 %; Eosinophils # (A) 0.1 k/uL (0-0.7); Eosinophils % (A) 1 %; HCT 43.1 % (34.0-46.0); HGB 14.3 gm/dL (11.4-16.0); Lymphocytes # (A) 2.1 k/uL (1.0-4.8); Lymphocytes % (A) 17 %; MCH 30.4 pg (25.0-35.0); MCHC 33.3 g/dL (31.0-37.0); MCV 91.3 fL (80.0-100.0); Mean Platelet Volume 8.9; Monocytes # (A) 0.7 k/uL (0-1.0); Monocytes % (A) 6 %; Neutrophils # (A) 9.3 k/uL (1.3-7.7); Neutrophils % (A) 75 %; Platelet Count 326 k/uL (150-450); RBC 4.72 m/uL (3.80-5.40); RDW 13.4 % (11.5-15.5); WBC 12.4 k/uL (3.8-10.6)
[2023-03-16 13:50] LABS: ALT 31 U/L (4-34); AST 36 U/L (14-36); African American GFR (CKD) >90 (>60 ml/min/1.73 sqM); Albumin 4.2 g/dL (3.5-5.0); Alkaline Phosphatase 103 U/L (38-126); Anion Gap 9 mmol/L; Blood Urea Nitrogen 13 mg/dL (7-17); Calcium 9.6 mg/dL (8.4-10.2); Carbon Dioxide 28 mmol/L (22-30); Chloride 98 mmol/L (98-107); Glucose 114 mg/dL (74-99); Lipase 43 U/L (23-300); Non-African American GFR(CKD) >90 (>60 ml/min/1.73 sqM); Potassium 3.6 mmol/L (3.5-5.1); Sodium 135 mmol/L (137-145); Total Bilirubin 0.6 mg/dL (0.2-1.3); Total Protein 6.9 g/dL (6.3-8.2)
--- NOTE | 2023-03-16 14:26 | CT ---
EXAMINATION TYPE: CT abdomen pelvis w con DATE OF EXAM: 03/16/2023 HISTORY: suspect diverticulitis. Left lower quadrant pain. CT DLP: 1120.8mGycm Automated Exposure Control for Dose Reduction was Utilized. CONTRAST: CT scan of the abdomen and pelvis is performed without oral but with IV Contrast, patient injected wi th 100 mL of Isovue 300. COMPARISON: Prior CT dated October 12, 2020 FINDINGS: LUNG BASES: Mild bibasilar linear scarring and/or atelectasis is redemonstrated. LIVER/GB: Liver is diffusely low dense consistent with diffuse fatty infiltration. PANCREAS: Mild to moderate fat replaced atrophy. SPLEEN: No significant abnormality is seen. ADRENALS: No significant abnormality is seen. KIDNEYS: Subcentimeter round lesion centrally left kidney delayed axial image 39 favors near 1.0 cm s imple cyst is again seen. BOWEL: Suboptimal evaluation without enteric contrast. No suspicious small or large bowel dilatation. Prominent diverticulum from the posterior gastric fundus with air-fluid level axial image 20 is rede monstrated. Additional tiny duodenal diverticulum along second portion coronal image 43. Scattered co lonic diverticula are redemonstrated. Normal-appearing appendix from the cecum in the right pelvis is noted. There is moderate ill-defined fluid and fat stranding in the proximal sigmoid colon of the le ft pelvis where there is moderate abnormal wall thickening. Along the deep aspect there is a 2.1 x 1. 3 cm oval low-density area felt to reflect tiny fluid collection or abscess with some nondependent ai r. No free air is seen. UTERUS/ADNEXA: Anteverted uterus. LYMPH NODES: No greater than 1cm abdominal or pelvic lymph nodes are appreciated. OSSEOUS STRUCTURES: There is scoliotic curvature redemonstrated. There is multilevel spurring and dis c space narrowing greatest at L2-L3, L4-L5, and L5-S1 levels redemonstrated. Moderate axial joint spa ce loss of both hips redemonstrated. OTHER: No significant additional abnormality is seen. IMPRESSION: Acute diverticulitis proximal sigmoid colon in the left pelvis with adjacent tiny abscess along the mesenteric surface. No free air is seen.
[2023-03-16] MEDS ORDERED: AMPICILLIN-SULBACTAM 3 GM in SODIUM CHLORIDE 0.9% 100 ML IVPB STA (14:48)
[2023-03-16] MEDS: AMPICILLIN-SULBACTAM 3 GM in SODIUM CHLORIDE 0.9% 100 ML IVPB SCH ×2 (15:15→21:52)
[2023-03-16] MEDS ORDERED: NALOXONE 0.4 MG/ML 1 ML VIAL IV PRN (15:20)
[2023-03-16] MEDS ORDERED: KETOROLAC 15 MG/ML 1 ML VIAL IVP STA (15:21)
[2023-03-16] MEDS: SODIUM CHLORIDE 0.9% 1,000 ML IV SCH (16:26)
[2023-03-16] MEDS ORDERED: ACETAMINOPHEN TAB 325 MG TAB PO PRN (18:55)
[2023-03-17] MEDS: AMPICILLIN-SULBACTAM 3 GM in SODIUM CHLORIDE 0.9% 100 ML IVPB SCH ×3 (07:01→21:56)
[2023-03-17] MEDS: SODIUM CHLORIDE 0.9% 1,000 ML IV SCH ×2 (07:48→21:57)
[2023-03-17] MEDS: METOPROLOL SUCCINATE (ER) 100 MG TAB.ER.24H PO SCH (08:15)
--- NOTE | 2023-03-17 09:46 | P.GSHP ---
History of Present Illness H&P Date: 03/17/23 Chief Complaint: Diverticulitis This is a 67-year-old female who was admitted to the hospital complaints of abdominal pain. She is workup found evidence of acute diverticulitis. Patient states he has a known history of diverticulosis. Past Medical History Past Medical History: Hypertension, Thyroid Disorder Additional Past Medical History / Comment(s): diverticulosis, COVID x2 History of Any Multi-Drug Resistant Organisms: None Reported Additional Past Surgical History / Comment(s): parathyroidectomy, right breat lumpectomy x2- Past Anesthesia/Blood Transfusion Reactions: No Reported Reaction Past Psychological History: No Psychological Hx Reported Smoking Status: Never smoker Past Alcohol Use History: None Reported Past Drug Use History: None Reported - Past Family History Father Family Medical History: Cancer Additional Family Medical History / Comment(s): at around 80 prostate cancer Mother Additional Family Medical History / Comment(s): of GIB in her 80s Medications and Allergies Home Medications Medication Instructions Recorded Confirmed Type Ergocalciferol (Vitamin D2) 1,250 mcg PO SUTH 10/12/20 03/16/23 History [Drisdol (50,000 Iu)] Metoprolol Succinate (ER) [Toprol 100 mg PO DAILY 03/16/23 03/16/23 History Xl] Multivitamins, Thera [Multivitamin 1 tab PO DAILY 03/16/23 03/16/23 History (formulary)] hydroCHLOROthiazide [Hydrodiuril] 25 mg PO DAILY PRN 03/16/23 03/16/23 History Allergies Allergy/AdvReac Type Severity Reaction Status Date / Time No Known Allergies Allergy Verified 03/16/23 15:12 Surgical - Exam Vital Signs Temp Pulse Resp BP Pulse Ox 98.2 F 98 20 156/75 95 03/16/23 12:02 03/16/23 12:02 03/16/23 12:02 03/16/23 12:02 03/16/23 12:02 - General well developed, well nourished, no distress - Eyes PERRL - ENT normal pinna - Neck no masses - Respiratory normal expansion - Cardiovascular Rhythm: regular - Abdomen Mild left lower quadrant tenderness Abdomen: soft Results - Labs 03/16/23 12:58 03/16/23 12:58 Abnormal Lab Results - Last 24 Hours (Table) 03/16/23 03/16/23 03/16/23 Range/Units 12:58 12:58 12:58 WBC 12.4 H (3.8-10.6) k/uL Neutrophils # 9.3 H (1.3-7.7) k/uL Sodium 135 L (137-145) mmol/L Glucose 114 H (74-99) mg/dL Urine Appearance Cloudy H (Clear) Urine Protein Trace H (Negative) Ur Leukocyte Esterase Large H (Negative) Urine WBC 13 H (0-5) /hpf Ur Squamous Epith Cells 14 H (0-4) /hpf Urine Bacteria Rare H (None) /hpf Urine Mucus Rare H (None) /hpf Diabetes panel 03/16/23 Range/Units 12:58 Sodium 135 L (137-145) mmol/L Potassium 3.6 (3.5-5.1) mmol/L Chloride 98 (98-107) mmol/L Carbon Dioxide 28 (22-30) mmol/L BUN 13 (7-17) mg/dL Creatinine 0.58 (0.52-1.04) mg/dL Glucose 114 H (74-99) mg/dL Calcium 9.6 (8.4-10.2) mg/dL AST 36 (14-36) U/L ALT 31 (4-34) U/L Alkaline Phosphatase 103 (38-126) U/L Total Protein 6.9 (6.3-8.2) g/dL Albumin 4.2 (3.5-5.0) g/dL Calcium panel 03/16/23 Range/Units 12:58 Calcium 9.6 (8.4-10.2) mg/dL Albumin 4.2 (3.5-5.0) g/dL Pituitary panel 03/16/23 Range/Units 12:58 Sodium 135 L (137-145) mmol/L Potassium 3.6 (3.5-5.1) mmol/L Chloride 98 (98-107) mmol/L Carbon Dioxide 28 (22-30) mmol/L BUN 13 (7-17) mg/dL Creatinine 0.58 (0.52-1.04) mg/dL Glucose 114 H (74-99) mg/dL Calcium 9.6 (8.4-10.2) mg/dL Adrenal panel 03/16/23 Range/Units 12:58 Sodium 135 L (137-145) mmol/L Potassium 3.6 (3.5-5.1) mmol/L Chloride 98 (98-107) mmol/L Carbon Dioxide 28 (22-30) mmol/L BUN 13 (7-17) mg/dL Creatinine 0.58 (0.52-1.04) mg/dL Glucose 114 H (74-99) mg/dL Calcium 9.6 (8.4-10.2) mg/dL Total Bilirubin 0.6 (0.2-1.3) mg/dL AST 36 (14-36) U/L ALT 31 (4-34) U/L Alkaline Phosphatase 103 (38-126) U/L Total Protein 6.9 (6.3-8.2) g/dL Albumin 4.2 (3.5-5.0) g/dL Assessment and Plan Assessment: Acute diverticula is. Patient received IV antibiotics.
--- NOTE | 2023-03-17 21:14 | P.CONS ---
History of Present Illness - Reason for Consult Consult date: 03/17/23 Medical management - Chief Complaint Abdominal pain - History of Present Illness Patient is a 67-year-old female with a known history of hypertension, hypothyroidism, history of parathyroidectomy and right breast lumpectomy, diverticulosis presents to ER with complaints of abdominal pain mainly in the left lower quadrant. Denies any blood in the stool. No complaints of nausea or vomiting. Patient has been afebrile with Tmax 99.1. CT of the abdomen pelvis showed acute diverticulitis proximal sigmoid colon in the left pelvis with tiny abscess along the mesenteric tiny abscess along the mesenteric surface. No free air is seen. Laboratory showed WBC 12.4 hemoglobin 14.3 and platelets 326 Sodium 135 potassium 3.6 chloride 98 bicarb is 28 BUN 13 and creatinine 0.58 Urinalysis showed cloudy with trace protein and large leukoesterase with WBCs 13 and squamous epithelial cells 14. Review of Systems Constitutional: Patient denies any fever or chills . no Generalized weakness. Abdomen: Patient denied any nausea or vomiting. Patient does have left lower quadrant abd. pain Cardiovascular: Patient denies any chest pain or short of breath no palpitations. Respiratory: patient denied any cough . no sputum production. No shortness of breath Neurologic: Patient denied any numbness or tingling headache. Musculoskeletal: Patient denies any complaints of joint swelling or deformity. Skin: Negative Psychiatric: Negative Endocrine: No heat or cold intolerance. No recent weight gain. Genitourinary: No dysuria or hematuria. All other 14 point ROS negative except the above Past Medical History Past Medical History: Hypertension, Thyroid Disorder Additional Past Medical History / Comment(s): diverticulosis, COVID x2 History of Any Multi-Drug Resistant Organisms: None Reported Additional Past Surgical History / Comment(s): parathyroidectomy, right breat lumpectomy x2- 1989' Past Anesthesia/Blood Transfusion Reactions: No Reported Reaction Past Psychological History: No Psychological Hx Reported Smoking Status: Never smoker Past Alcohol Use History: None Reported Past Drug Use History: None Reported - Past Family History Father Family Medical History: Cancer Additional Family Medical History / Comment(s): at around 80 prostate cancer Mother Additional Family Medical History / Comment(s): of GIB in her 80s Medications and Allergies Home Medications Medication Instructions Recorded Confirmed Type Ergocalciferol (Vitamin D2) 1,250 mcg PO SUT 10/12/20 03/16/23 History [Drisdol (50,000 Iu)] Metoprolol Succinate (ER) [Toprol 100 mg PO DAILY 03/16/23 03/16/23 History Xl] Multivitamins, Thera [Multivitamin 1 tab PO DAILY 03/16/23 03/16/23 History (formulary)] hydroCHLOROthiazide [Hydrodiuril] 25 mg PO DAILY PRN 03/16/23 03/16/23 History Allergies Allergy/AdvReac Type Severity Reaction Status Date / Time No Known Allergies Allergy Verified 03/16/23 15:12 Physical Exam Vitals: Vital Signs Temp Pulse Resp BP Pulse Ox 03/17/23 18:59 98.7 F 84 18 131/77 96 03/17/23 11:17 98.3 F 77 18 143/68 92 L 03/17/23 07:17 98.0 F 82 18 131/78 95 03/17/23 02:03 99.1 F 94 20 128/73 95 Intake and Output 03/17/23 03/17/23 03/17/23 06:59 14:59 22:59 Intake Total 900 900 Balance 900 900 Intake: Intake, IV Titration 900 900 Amount Sodium Chloride 0.9% 1, 900 900 000 ml @ 75 mls/hr IV . [id number] [facility] Rx#:[id number] Other: # Voids 2 PHYSICAL EXAMINATION: Patient is lying in the bed comfortably, no acute distress, awake alert and oriented.. HEENT: Normocephalic. Neck is supple. Pupils reactive. Nostrils clear. Oral cavity is moist. Neck reveals no JVD, carotid bruits, or thyromegaly. CHEST EXAMINATION: Trachea is central. Symmetrical expansion. Lung garcia clear to auscultation and percussion. CARDIAC: Normal S1, S2 with no gallops. No murmurs ABDOMEN: Soft. Bowel sounds present. Left lower quadrant tenderness. Mild. No guarding obesity. No organomegaly. No abdominal bruits. Extremities: reveal no edema. No clubbing or cyanosis Neurologically awake, alert, oriented x3 with well-coordinated movements. No focal deficits noted Skin: No rash or skin lesions. Psychiatric: Coperative. Nonsuicidal, Musculoskeletal: No joint swelling or deformity. Normal range of motion. Results CBC & Chem 7: 03/16/23 12:58 03/16/23 12:58 Assessment and Plan Assessment: Acute diverticulitis involving proximal sigmoid colon with adjacent tiny abscess. Hypertension history of parathyroidectomy DVT prophylaxis with SCDs Plan: Patient will be continued on IV hydration. Hydrochlorothiazide is on hold. Continue with metoprolol and titrate blood pressure medications as needed. Patient will be continued on antibiotics Unasyn and follow-up CBC and BMP tomorrow. Further recommendations based on the clinical course. Thank you for your consult.
[2023-03-18] MEDS: AMPICILLIN-SULBACTAM 3 GM in SODIUM CHLORIDE 0.9% 100 ML IVPB SCH ×3 (06:09→23:35)
[2023-03-18] MEDS: SODIUM CHLORIDE 0.9% 1,000 ML IV SCH ×2 (08:30→23:36)
[2023-03-18] MEDS: METOPROLOL SUCCINATE (ER) 100 MG TAB.ER.24H PO SCH (08:30)
--- NOTE | 2023-03-18 10:16 | P.PN ---
Progress Note - Text Progress Note Date: 03/18/23 The patient feels better. Her pain is improved. On exam vital signs are stable. Abdomen is soft. There is mild left lower quadrant tenderness. Resolving diverticulitis. Patient will most likely discharged home tomorrow. She'll continue IV antibiotics
[2023-03-18 10:24] LABS: Basophils # (A) 0.07 X 10*3/uL (0.00-0.10); Eosinophils # (A) 0.24 X 10*3/uL (0.04-0.35); Eosinophils % (A) 3.5 %; HCT 38.8 % (37.2-46.3); HGB 12.4 g/dL (12.0-15.0); Immature Grans, Automated 0.3 %; Lymphocytes # (A) 1.92 X 10*3/uL (0.90-5.00); MCH 30.3 pg (27.0-32.0); MCV 94.9 fL (80.0-97.0); Mean Platelet Volume 11.6 fL (9.5-12.2); Monocytes # (A) 0.59 X 10*3/uL (0.20-1.00); Monocytes % (A) 8.6 %; NRBC Per 100 WBC 0 /100 WBCS (0.0-0.0); Neutrophils # (A) 4.02 X 10*3/uL (1.80-7.70); Neutrophils % (A) 58.6 %; Platelet Count 291 X 10*3/uL (140-440); RBC 4.09 X 10*6/uL (4.10-5.20); RDW 13.8 % (11.5-14.5); WBC 6.86 X 10*3/uL (4.50-10.00)
[2023-03-18 10:32] LABS: African American GFR (CKD) 105.7 (60.0-200.0); Anion Gap 10.2 mmol/L (10.00-18.00); BUN/Creat Ratio 10.48 Ratio (12.00-20.00); Blood Urea Nitrogen 6.8 mg/dL (9.0-27.0); Calcium 8.8 mg/dL (8.7-10.3); Carbon Dioxide 25.9 mmol/L (20.0-27.5); Non-African American GFR(CKD) 91.2 (60.0-200.0); Potassium 3.9 mmol/L (3.5-5.5)
[2023-03-19] MEDS: AMPICILLIN-SULBACTAM 3 GM in SODIUM CHLORIDE 0.9% 100 ML IVPB SCH (06:28)
[2023-03-19 07:52] VITALS: BP 167/74; PULSE 81; RESP 18; TEMP 97.8
[2023-03-19] MEDS: METOPROLOL SUCCINATE (ER) 100 MG TAB.ER.24H PO SCH (09:20)
[2023-03-19] MEDS: SODIUM CHLORIDE 0.9% 1,000 ML IV SCH (09:21)
--- NOTE | 2023-03-19 10:33 | P.PN ---
Subjective Progress Note Date: 03/18/23 Patient is a 67-year-old female with a known history of hypertension, hypothyroidism, history of parathyroidectomy and right breast lumpectomy, diverticulosis presents to ER with complaints of abdominal pain mainly in the left lower quadrant. Denies any blood in the stool. No complaints of nausea or vomiting. Patient has been afebrile with Tmax 99.1. CT of the abdomen pelvis showed acute diverticulitis proximal sigmoid colon in the left pelvis with tiny abscess along the mesenteric tiny abscess along the mesenteric surface. No free air is seen. Laboratory showed WBC 12.4 hemoglobin 14.3 and platelets 326 Sodium 135 potassium 3.6 chloride 98 bicarb is 28 BUN 13 and creatinine 0.58 Urinalysis showed cloudy with trace protein and large leukoesterase with WBCs 13 and squamous epithelial cells 14. 03/18/2023 Patient is currently resting in the bed. Awake alert and oriented 3. Left lower quadrant abdominal pain is much improved. Patient did have a bowel movement today. Started on oral diet and advance as tolerated. Patient is being continued on IV antibiotics, Unasyn and leukocytosis is trending down. Afebrile. No other acute overnight issues. No cough or sputum production. No chest pain or shortness of breath. Current medications reviewed. Objective - Vital Signs Vital signs: Vital Signs Temp 98.0 F 03/18/23 19:09 Pulse 81 03/18/23 19:09 Resp 15 03/18/23 19:09 BP 131/72 03/18/23 19:09 Pulse Ox 94 L 03/18/23 19:09 FiO2 Intake & Output 03/18/23 03/18/23 03/19/23 06:59 18:59 06:59 Intake Total 1000 Balance 1000 Intake: Intake, IV Titration 1000 Amount Ampicillin-Sulbactam 3 gm 100 In Sodium Chloride 0.9% 100 ml @ 200 mls/hr IVPB Q8H [facility] Rx#:[id number] Sodium Chloride 0.9% 1, 900 000 ml @ 75 mls/hr IV . [id number] [facility] Rx#:[id number] Other: Voiding Method Toilet # Voids 3 - Exam PHYSICAL EXAMINATION: Patient is lying in the bed comfortably, no acute distress, awake alert and oriented.. HEENT: Normocephalic. Neck is supple. Pupils reactive. Nostrils clear. Oral cavity is moist. Neck reveals no JVD, carotid bruits, or thyromegaly. CHEST EXAMINATION: Trachea is central. Symmetrical expansion. Lung garcia clear to auscultation and percussion. CARDIAC: Normal S1, S2 with no gallops. No murmurs ABDOMEN: Soft. Bowel sounds normal. No organomegaly. No abdominal bruits. Extremities: reveal no edema. No clubbing or cyanosis Neurologically awake, alert, oriented x3 with well-coordinated movements. No focal deficits noted Skin: No rash or skin lesions. Psychiatric: Coperative. Nonsuicidal Musculoskeletal: No joint swelling or deformity. Normal range of motion. - Labs CBC & Chem 7: 03/18/23 04:48 03/18/23 04:48 Labs: Abnormal Lab Results - Last 24 Hours (Table) 03/18/23 03/18/23 Range/Units 04:48 04:48 RBC 4.09 L (4.10-5.20) X 10*6/uL BUN 6.8 L (9.0-27.0) mg/dL BUN/Creatinine Ratio 10.48 L (12.00-20.00) Ratio Microbiology - Last 24 Hours (Table) 03/16/23 15:10 Blood Culture - Preliminary Blood Assessment and Plan Assessment: Acute diverticulitis involving proximal sigmoid colon with adjacent tiny abscess. Hypertension history of parathyroidectomy DVT prophylaxis with SCDs Plan: Patient will be continued on IV hydration. Hydrochlorothiazide is on hold. Continue with metoprolol and titrate blood pressure medications as needed. Patient will be continued on antibiotics Unasyn and leukocytosis is trending down.. Further recommendations based on the clinical course. Anticipate discharged in next 24 hours with marked clinical improvement.
--- NOTE | 2023-03-19 10:43 | P.DS ---
Providers Date of admission: 03/16/23 15:20 Expected date of discharge: 03/19/23 Attending physician: Ramakrishna Mayer Consults: 03/16/23 15:20 Consult Physician Routine Consulting Provider: Stuart Centeno Consult Reason/Comments: medicine consult Do you want consulting provider notified?: Yes Primary care physician: [facility] Course: Discharge diagnosis 1. Acute diverticulitis sigmoid colon with tiny abscess Hospital course This 67-year-old female presented with left lower quadrant abdominal pain. She was found to have evidence of acute diverticulitis with tiny abscess noted on computed tomography scan. Should symptoms have improved with antibiotics. She is tolerating diet. Pain has resolved. She is afebrile. White count normalized. She has been up and ambulating. She did have regular bowel movement. She is stable for discharge. Please refer to chart for any further details. Physician Finished Yarn Examiner note has been reviewed by physician. Signing provider agrees with the documented findings, assessment, and plan of care. Patient Condition at Discharge: Stable Plan - Discharge Summary Discharge Rx Participant: No New Discharge Prescriptions: New metroNIDAZOLE [Flagyl] 500 mg PO TID 10 Days #30 tab Levofloxacin [Levaquin] 500 mg PO DAILY 10 Days #10 tab Continue Ergocalciferol (Vitamin D2) [Drisdol (50,000 Iu)] 1,250 mcg PO SUTH Multivitamins, Thera [Multivitamin (formulary)] 1 tab PO DAILY Metoprolol Succinate (ER) [Toprol XL] 100 mg PO DAILY hydroCHLOROthiazide [Hydrodiuril] 25 mg PO DAILY PRN PRN Reason: Edema Discharge Medication List Ergocalciferol (Vitamin D2) [Drisdol (50,000 Iu)] 1,250 mcg PO SUTH 10/12/20 [History] Metoprolol Succinate (ER) [Toprol XL] 100 mg PO DAILY 03/16/23 [History] Multivitamins, Thera [Multivitamin (formulary)] 1 tab PO DAILY 03/16/23 [H istory] hydroCHLOROthiazide [Hydrodiuril] 25 mg PO DAILY PRN 03/16/23 [History] Levofloxacin [Levaquin] 500 mg PO DAILY 10 Days #10 tab 03/19/23 [Rx] metroNIDAZOLE [Flagyl] 500 mg PO TID 10 Days #30 tab 03/19/23 [Rx] Follow up Appointment(s)/Referral(s): Vivek Hayden MD [Primary Care Provider] - 1-2 days Ramakrishna Mayer MD [STAFF PHYSICIAN] - 1 Week Activity/Diet/Wound Care/Special Instructions: Recommend Metamucil or Benefiber daily to avoid constipation Discharge Disposition: HOME SELF-CARE
== END 2023-03-19 11:55 | disposition home or self-care (01) | DRG 392 ==
LOC: EC 11:43 → 5NMEDONC 15:20
PROVIDERS: ADMIT Surgery; ATTEND Surgery
DX: K57.20 Diverticulitis of large intestine with perforation and abscess without bleeding (principal); D72.829 Elevated white blood cell count, unspecified; I10 Essential (primary) hypertension; E89.2 Postprocedural hypoparathyroidism; Z28.310 Unvaccinated for COVID-19; Z86.16 Personal history of COVID-19; Z79.899 Other long term (current) drug therapy
CPT/HCPCS: 36415; 74177; 80048; 80053; 81001; 83690; 83735; 85025; 96365; 96375; 99285

== ENCOUNTER → 2023-08-17 | Outpatient (CLI) | payer MEDICARE ==
[2023-08-17 13:10] LABS: HCT 46.1 % (34.0-46.0); MCH 30.8 pg (25.0-35.0); MCHC 32.5 g/dL (31.0-37.0); MCV 94.9 fL (80.0-100.0); Mean Platelet Volume 8.7; Platelet Count 260 k/uL (150-450); RBC 4.85 m/uL (3.80-5.40); RDW 13.9 % (11.5-15.5); WBC 8.3 k/uL (3.8-10.6)
[2023-08-17 13:49] LABS: Anion Gap 6 mmol/L; Blood Urea Nitrogen 14 mg/dL (7-17); Calcium 9.8 mg/dL (8.4-10.2); Carbon Dioxide 29 mmol/L (22-30); Chloride 104 mmol/L (98-107); Glucose 102 mg/dL (74-99); Sodium 139 mmol/L (137-145)
--- NOTE | 2023-08-17 15:02 | CT ---
EXAMINATION TYPE: CT abdomen pelvis w con DATE OF EXAM: 08/17/2023 COMPARISON: 03/16/2023 HISTORY: f/u diverticulitis and abdominal abscess. CT DLP: 1027.6 mGycm CONTRAST: CT scan of the abdomen and pelvis is performed with Oral Contrast and with IV Contrast, patient injec kolby with 100 mL of Isovue 300. FINDINGS: LUNG BASES-: No visible nodule. No infiltrate. LIVER/GB: No calcified gallstones. No space occupying hepatic lesion. Biliary tree is of normal ca liber. PANCREAS: No inflammation. No distinct mass. SPLEEN: No splenic enlargement. No lesion seen. ADRENALS: No nodule. No thickening. KIDNEYS/BLADDER: No hydronephrosis. No nephrolithiasis. No distinct solid renal mass. 1.5 cm cyst midpole left kidney. Urinary bladder grossly unremarkable. BOWEL: Normal appendix. Long segment wall thickening involving the distal descending colon and sigmoi d colon. Moderate diverticulosis without diverticulitis. The findings may reflect nonspecific colitis which includes infectious, inflammatory and vascular causes. GENITAL ORGANS: No gross abnormality. LYMPH NODES: No greater than 1cm abdominal or pelvic lymph nodes are appreciated. AORTA: No significant abnormality. OSSEOUS STRUCTURES: No significant abnormality is seen. OTHER: No significant additional abnormality is seen. IMPRESSION: 1. Long segment wall thickening involving the distal descending colon and sigmoid colon. Moderate div erticulosis without diverticulitis. The findings may reflect nonspecific colitis which includes infec tious, inflammatory and vascular causes.
== END | disposition home or self-care (01) ==
LOC: RADCTMAIN 12:39
PROVIDERS: ATTEND Internal Medicine Gastroenterology
DX: K57.32 Diverticulitis of large intestine without perforation or abscess without bleeding (principal)
CPT/HCPCS: 80048; 85027; 74177; 36415; Q9967

== ENCOUNTER → 2024-05-07 | Outpatient (CLI) | payer MEDICARE ==
--- NOTE | 2024-05-13 11:42 | MM ---
Reason for Exam: Screening (asymptomatic). Last mammogram was performed 1 year(s) and 2 month(s) ago. Patient History: Menarche at age 11. First Full-Term at age 19. Postmenopausal. 2001, Benign Excisional Biopsy on the right side. 1994, Benign Excisional Biopsy on the right side. Risk Values: Mray 5 year model risk: 2.3%. NCI Lifetime model risk: 6.7%. Prior Study Comparison: 01/20/2021 Bilateral Screening Mammogram, [facility]. 01/23/2022 Bilateral Screening Mammogram, [facility]. 02/27/2023 Bilateral MG 3D screening mammo w/cad, [facility]. Tissue Density: The breasts are almost entirely fatty. Findings: Analyzed By CAD. Right breast: There is no suspicious group of microcalcifications or new suspicious mass. Left breast: There is no suspicious group of microcalcifications or new suspicious mass. Overall Assessment: Negative, BI-RAD 1 Management: Screening Mammogram of both breasts in [address] [facility] will attempt to contact patient to return for supplemental views and ultrasound if indicated. Patient should continue monthly self-breast exams. A clinical breast exam by your physician is recommended on an annual basis. This exam should not preclude additional follow-up of suspicious palpable abnormalities. Note on Mary scores and lifetime risk: 1. A Mary score greater than 3% is considered moderate risk. If this is the case, consider specialist referral to assess eligibility for a risk reducing agent. 2. If overall lifetime risk for the development of breast cancer is 20% or higher, the patient may qualify for future screening with alternating mammogram and breast MRI. Electronically signed and approved by: Kuldeep Hernandez DO
== END | disposition home or self-care (01) ==
LOC: RADMAMWWP 13:57
PROVIDERS: ATTEND Family Medicine
DX: Z12.31 Encounter for screening mammogram for malignant neoplasm of breast (principal); Z78.0 Asymptomatic menopausal state
CPT/HCPCS: 77063; 77067

== ENCOUNTER → 2025-06-12 | Outpatient (CLI) | payer MEDICARE ==
--- NOTE | 2025-06-12 15:22 | MM ---
Reason for Exam: Screening (asymptomatic). Last mammogram was performed 1 year(s) and 1 month(s) ago. Patient History: Menarche at age 11. First Full-Term at age 19. Postmenopausal. Patient used Hormonal Contraceptives for 1 year. 2001, Benign Excisional Biopsy on the right side. 1994, Benign Excisional Biopsy on the right side. Risk Values: Mary 5 year model risk: 2.3%. NCI Lifetime model risk: 6.4%. Prior Study Comparison: 01/23/2022 Bilateral Screening Mammogram, [facility]. 02/27/2023 Bilateral MG 3D screening mammo w/cad, [facility]. 05/07/2024 Bilateral MG 3D screening mammo w/cad, [facility]. Tissue Density: There are scattered areas of fibroglandular density. Findings: Analyzed By CAD. There is no suspicious group of microcalcifications or new suspicious mass in either breast. Stable chronic nodularity right breast. Benign-appearing calcifications. Stable asymmetric breast tissue. Overall Assessment: Benign, BI-RAD 2 Management: Screening Mammogram of both breasts in 1 year. . Patient should continue monthly self-breast exams. A clinical breast exam by your physician is recommended on an annual basis. This exam should not preclude additional follow-up of suspicious palpable abnormalities. Note on Mary scores and lifetime risk: 1. A Mary score greater than 3% is considered moderate risk. If this is the case, consider specialist referral to assess eligibility for a risk reducing agent. 2. If overall lifetime risk for the development of breast cancer is 20% or higher, the patient may qualify for future screening with alternating mammogram and breast MRI. [facility], , 06/12/2025 3:19 PM. Electronically signed and approved by: Luther Reagan M.D. [facility]iolog[facility]
== END | disposition home or self-care (01) ==
LOC: RADMAMWWP 14:24
PROVIDERS: ATTEND Family Medicine
DX: Z12.31 Encounter for screening mammogram for malignant neoplasm of breast (principal); R92.323 Mammographic fibroglandular density, bilateral breasts; Z78.0 Asymptomatic menopausal state; Z92.0 Personal history of contraception
CPT/HCPCS: 77063; 77067